=== PATIENT | male | born 1940 | race Caucasian/White ===

== ENCOUNTER 2017-01-26 23:31 | Inpatient (IN) | payer OTHER ==
[2017-01-26] MEDS ORDERED: TYLENOL 500 MG TAB EXTRA STRENGTH PO ONE (23:39)
[2017-01-26] MEDS ORDERED: DUONEB 0.5 MG/3 MG NEB ONE (23:40)
[2017-01-26] MEDS ORDERED: TYLENOL 500 MG TAB EXTRA STRENGTH ONE (23:41)
[2017-01-26] MEDS ORDERED: DUONEB 0.5 MG/3 MG ONE (23:44)
--- NOTE | 2017-01-26 23:56 | RAD ---
Chest, one view Indication: Shortness of breath. Comparison: None Findings: Cardiac silhouette size is within normal limits. There is decreased depth of inspiration. There is bilateral hilar prominence. No focal lung infiltrates or large pleural effusion. The bony t horax is unremarkable. Impression: Bilateral hilar prominence may be accentuated by low lung volumes, but pulmonary artery hypertension or adenopathy could have this appearance as well. No focal infiltrates. Reported By:
[2017-01-26 23:58] LABS: ABG ALLEN TEST POS; ABG BASE EXCESS 0.2 mmol/L (-2.0-2.0); ABG HCO3 23.5 mmol/L (22-26)
[2017-01-27] MEDS ORDERED: SOLU-Medrol 125 MG VIAL IVP ONE (00:03)
--- NOTE | 2017-01-27 00:05 | DR.GENAD ---
HPI - PCP Primary Care Physician: mio - HPI Comment HPI Comment: WORSE TONIGHT. COUGHING, NON PRODUCTIVE, CHEST PAIN AND FEVER. PATIENT IS ALSO WEAK TODAY. - Complaint/Symptoms Chief Complaint Doctors Comments: INCREASING SOB TIMES ONE DAY. Chief Complaint:: pt c/o being SOB - Nurses notes reviewed Nurses Notes Review: Yes - Source History Provided: Patient, Family Member - Mode of Arrival Mode of Arrival: EMS - Timing Onset of Chief Complaint: 01/26/17 Came on: Gradually - Duration Duration: Constant Duration: Days - Severity Severity: Moderate PMH - PMH Past Medical History: Yes Past Medical History: COPD, Dementia, Hypertension Past Surgical History: No - Family History History of Family Medical Conditions: No - Social History Does any household member use tobacco: No Alcohol Use: None Do you use any recreational Drugs:: No Lives With: Family Lives Where: Home - infectious screening In the last 2 months have you had wt loss of >10#?: NO Have you had fever, night sweats or hemotysis?: No Have you traveled outside the country in the last 6 months?: No Isolation: Standard ROS - Review of Systems Constitutional: Fever, Weakness, Fatigue, Loss of Appetite. negative: Chills Eyes: No Symptoms Reported. negative: Eye Pain, Discharge ENTM: Nose Congestion. negative: Ear Pain, Nose Discharge, Throat Pain Respiratoy: Non-Productive Cough, Short of Breath, Wheezing. negative: Productive Cough, Hemoptysis Cardiovascular: Chest Pain, Edema Gastrointestinal/Abdominal: Nausea. negative: Diarrhea, Vomiting Genitourinary: No Symptoms Reported. negative: Dysuria, Frequency, Hematuria Neurological: No Symptoms Reported, Weakness, Dizziness. negative: Headache Musculoskeletal: Muscle Pain Integumentary: Change in Hair/Nails, Dryness Hematologic/Lymphatic: Easy Bruising Endocrine: No Symptoms Reported All Other Systems: Reviewed and Negative PE - Vital Signs Vitals: Temperature 99 F Pulse Rate [Left Radial] 100 Pulse Rate 118 Respiratory Rate 22 Blood Pressure [Left Arm] 109/68 Blood Pressure 152/75 O2 Sat by Pulse Oximetry 95 - General General Appearance: Alert - Head Head Exam: Normal Inspection - Eyes Eye exam: Normal Appearance - ENT ENT Exam: Normal External Ear Exam External Ear Exam: Normal External Inspection TM/Canal Exam: Bilateral Normal Mouth Exam: Normal Inspection Throat Exam: Normal Inspection - Neck Neck Exam: Trachea Midline. negative: Tenderness, Meningismus, Lymphadenopathy - Chest Chest Inspection: Symmetric Chest Wall Rise - Respiratory Respiratory Exam: Respiratory Distress. negative: Chest Wall Tenderness Respiratory Exam: Bilateral Wheezing, Bilateral Rhonchi, Upper Wheezing, Upper Rhonchi, Lower Wheezing, Lower Rhonchi - Cardiovascular Cardiovascular Exam: Regular Rate, Normal Rhythm, Normal Heart Sounds - Abdominal Exam Abdominal Exam: Normal Bowel Sounds, Soft. negative: Tenderness - Extremities Extremities Exam: Tenderness (TENDERNESS AND REDNESS LEFT LEG.), Edema - Neurologic Neurological Exam: Alert, Oriented X3 (TIMES 2) - Psychiatric Psychiatric Exam: Normal Affect, Normal Mood - Skin Skin Exam: Rash, Erythema MDM - Additional Information Additional Information Obtained From: Family - Differential Diagnosis Differential Diagnosis: COPD EXACERBATION, BRONCHITIST, UTI, PNEUMONIA, CELLULITIS Course - Treatment Treatment: SEE ORDERS. - Education/Counseling Education/Counseling: Patient, Family, Education Educated On: Treatment, Diagnosis ROR - Labs Reviewed Laboratory Results Reviewed?: Yes Result Diagrams: 01/26/17 23:55 01/26/17 23:55 Laboratory: WBC 10.6 X10^3/uL (3.6-10.0) H 01/26/17 23:55 RBC 4.23 X10^6/uL (4.7-6.0) L 01/26/17 23:55 Hgb 13.5 g/dL (13.5-18.0) 01/26/17 23:55 Hct 38.6 % (42.0-54.0) L 01/26/17 23:55 MCV 91.2 fL (80.0-100.0) 01/26/17 23:55 MCH 31.8 pg (27.0-34.0) 01/26/17 23:55 MCHC 34.9 g/dL (33.0-35.0) 01/26/17 23:55 RDW 12.8 % (11.6-16.5) 01/26/17 23:55 Plt Count 191 X10^3/uL (150.0-450.0) 01/26/17 23:55 MPV 8.1 fL (7.4-11.0) 01/26/17 23:55 Neut % 87.1 % (42.0-75.0) H 01/26/17 23:55 Lymph % 6.5 % (21.0-51.0) L 01/26/17 23:55 [place] % 5.4 % (0.0-13.0) 01/26/17 23:55 Eos % 0.3 % (0.9-2.9) L 01/26/17 23:55 Baso % 0.7 % (0.2-1.0) 01/26/17 23:55 Neut # 9.2 x10^3/uL (2.2-4.8) H 01/26/17 23:55 Lymph # 0.7 X10^3/uL (1.3-2.9) L 01/26/17 23:55 [place] # 0.6 x10^3/uL (0.3-0.8) 01/26/17 23:55 Eos # 0.0 x10^3/uL (0.0-0.2) 01/26/17 23:55 Baso # 0.1 X10^3/uL (0.0-0.1) 01/26/17 23:55 Absolute Nucleated RBC 0.0 /100WBC 01/26/17 23:55 D-Dimer 1860 ng/mL (0-400) H* 01/26/17 23:55 Sample Site Rrad 01/26/17 23:52 ABG pH 7.460 (7.35-7.45) H 01/26/17 23:52 ABG pCO2 33.0 mmHg (35.0-45.0) L 01/26/17 23:52 ABG pO2 67.0 mmHg (80.0-100.0) L 01/26/17 23:52 ABG HCO3 23.5 mmol/L (22-26) 01/26/17 23:52 ABG O2 Saturation 94.0 % (90-100) 01/26/17 23:52 ABG Base Excess 0.2 mmol/L (-2.0-2.0) 01/26/17 23:52 Alex Test Pos 01/26/17 23:52 A-a Gradient 91.0 mmHg 01/26/17 23:52 FiO2 28.000 01/26/17 23:52 Blood Gas Comments Antoine abg well-mtf 01/26/17 23:52 Sodium 135 mmol/L (136-145) L 01/26/17 23:55 Corrected Sodium 136 mmol/L (136-145) 01/26/17 23:55 Potassium 3.4 mmol/L (3.5-5.1) L 01/26/17 23:55 Chloride 100 mmol/L (98-107) 01/26/17 23:55 Carbon Dioxide 22.8 mmol/L (21-32) 01/26/17 23:55 BUN 19 mg/dL (7-18) H 01/26/17 23:55 Creatinine 1.37 mg/dL (0.70-1.30) H 01/26/17 23:55 Est GFR (MDRD) Af Amer > 60 (>60) 01/26/17 23:55 Est GFR (MDRD) Non-Af 54 (>60) L 01/26/17 23:55 Glucose 139 mg/dL (65-99) H 01/26/17 23:55 Calcium 8.6 mg/dL (8.5-10.1) 01/26/17 23:55 Corrected Calcium TNP 01/26/17 23:55 Total Bilirubin 0.90 mg/dL (0.2-1.0) 01/26/17 23:55 AST 27 Units/L (15-37) 01/26/17 23:55 ALT 24 Units/L (12-78) 01/26/17 23:55 Alkaline Phosphatase 49 Units/L (46-116) 01/26/17 23:55 Creatine Kinase 250 Units/L (39-308) 01/26/17 23:55 CK-MB (CK-2) < 1.0 ng/mL (0-4.0) 01/26/17 23:55 CK/CKMB % Calc 0.4 % (<4) 01/26/17 23:55 Troponin I < 0.02 ng/mL (0-1.5) 01/26/17 23:55 Total Protein 7.7 g/dL (6.4-8.2) 01/26/17 23:55 Albumin 3.4 g/dL (3.4-5.0) 01/26/17 23:55 Globulin 4.3 g/dL (2.5-4.5) 01/26/17 23:55 Albumin/Globulin Ratio 0.8 Ratio (1.1-2.1) L 01/26/17 23:55 - XRAY XRAY Interpreted by: Radiologist XRAY Findings: REPORT DISCUSS WITH PATIENT. - EKG Rhythm: NSR (EKG NOTED.) - Diagnosis Discharge Problem: COPD exacerbation, Bronchitis Chest pain Qualifiers: Chest pain type: intercostal pain Qualified Code(s): R07.82 - Intercostal pain - Discharge Plan Disposition: 09 ADMITTED INPATIENT Condition: Stable - Follow ups/Referrals - Instructions
[2017-01-27] MEDS ORDERED: SOLU-Medrol 125 MG VIAL ONE (00:10)
[2017-01-27] MEDS: NS 1000 ML 1,000 ML IV SCH ×3 (00:14→18:46)
[2017-01-27 00:16] LABS: BASOPHILS # (AUTO) 0.1 X10^3/uL (0.0-0.1); BASOPHILS % (AUTO) 0.7 % (0.2-1.0); EOSINOPHILS % (AUTO) 0.3 % (0.9-2.9); HEMATOCRIT 38.6 % (42.0-54.0); HEMOGLOBIN 13.5 g/dL (13.5-18.0); LYMPHOCYTES # (AUTO) 0.7 X10^3/uL (1.3-2.9); LYMPHOCYTES % (AUTO) 6.5 % (21.0-51.0); MEAN CORPUSCULAR HEMOGLOBIN 31.8 pg (27.0-34.0); MEAN CORPUSCULAR HGB CONC 34.9 g/dL (33.0-35.0); MEAN CORPUSCULAR VOLUME 91.2 fL (80.0-100.0); MEAN PLATELET VOLUME 8.1 fL (7.4-11.0); MONOCYTES # (AUTO) 0.6 x10^3/uL (0.3-0.8); MONOCYTES % (AUTO) 5.4 % (0.0-13.0); NEUTROPHILS # (AUTO) 9.2 x10^3/uL (2.2-4.8); NEUTROPHILS % (AUTO) 87.1 % (42.0-75.0); PLATELET COUNT 191 X10^3/uL (150.0-450.0); RED BLOOD COUNT 4.23 X10^6/uL (4.7-6.0); RED CELL DISTRIBUTION WIDTH 12.8 % (11.6-16.5); WHITE BLOOD COUNT 10.6 X10^3/uL (3.6-10.0)
[2017-01-27 00:35] LABS: ALANINE AMINOTRANSFERASE 24 Units/L (12-78); ALBUMIN 3.4 g/dL (3.4-5.0); ALKALINE PHOSPHATASE 49 Units/L (46-116); ASPARTATE AMINO TRANSFERASE 27 Units/L (15-37); BLOOD UREA NITROGEN 19 mg/dL (7-18); CALCIUM 8.6 mg/dL (8.5-10.1); CARBON DIOXIDE 22.8 mmol/L (21-32); CHLORIDE 100 mmol/L (98-107); COR NA(FOR HYPERGLY) 136 mmol/L (136-145); CREATININE 1.37 mg/dL (0.70-1.30); GLUCOSE 139 mg/dL (65-99); SODIUM 135 mmol/L (136-145); TOTAL PROTEIN 7.7 g/dL (6.4-8.2); eGFR BLACK RACES > 60 (>60); eGFR NON BLACK RACES 54 (>60)
[2017-01-27 00:46] LABS: CKMB % 0.4 % (<4); CREATINE KINASE 250 Units/L (39-308); CREATINE KINASE MB < 1.0 ng/mL (0-4.0); TROPONIN I < 0.02 ng/mL (0-1.5)
[2017-01-27] MEDS ORDERED: LEVAQUIN PREMIX IV 750 MG 750 MG/150 ML BAG IV ONE ×2 (01:15→01:16)
[2017-01-27] MEDS ORDERED: NS 100 ML IV 100 ML IV ONE (02:41)
--- NOTE | 2017-01-27 03:24 | CT ---
CT angiogram of the chest with contrast Indication: Chest pain, shortness of breath, elevated D-dimer. Comparison: None Technique: CT images of the chest were obtained after IV contrast administration per protocol. Autom atic exposure control was utilized. MIP images provided. Findings: No aggressive osseous lesions. Images through the upper abdomen demonstrate several liver hypodensities which cannot be definitively characterized. Cholelithiasis noted. Bilateral renal cyst s with some hyperattenuation of the left kidney, suggesting proteinaceous or hemorrhagic cyst. The heart size is normal, without significant pericardial thickening or pericardial effusion. The th oracic aorta is grossly normal aside from scattered atherosclerotic calcifications. No pulmonary art erial filling defect identified. There are mildly enlarged right hilar lymph nodes. There is mild up per lobe predominant emphysema. There is a 3 mm left lower lobe pulmonary nodule on axial image 61. No focal infiltrates, pleural effusion, or pneumothorax. Impression: 1. No evidence for PTE. No acute chest process. 2. COPD. 3. Right hilar adenopathy, of indeterminate significance. Correlate with malignancy history. The fol lowup recommended. 4. 3 mm left lower lobe pulmonary nodule. Consider CT followup in 6-12 months if the patient has sig nificant risk factors. 5. Hypodense liver lesions cannot be definitively characterized, but are likely cysts. Reported By:
[2017-01-27 04:43] LABS: BILIRUBIN,URINE NEGATIVE (NEGATIVE); BLOOD/HEMOGLOBIN,URINE 3+ (NEGATIVE); GLUCOSE, URINE NEGATIVE (NEGATIVE); KETONES,URINE NEGATIVE (NEGATIVE); LEUKOCYTE ESTERASE ,URINE NEGATIVE (NEGATIVE); NITRITES,URINE NEGATIVE (NEGATIVE); PROTEIN,URINE 2+ (NEGATIVE); UROBILINOGEN,URINE 1+ (NORMAL)
[2017-01-27 04:57] LABS: APPEARANCE,URINE CLEAR (CLEAR); COLOR,URINE DARK YELLOW (YELLOW); RBC,URINE 0-3 /HPF (NEGATIVE)
[2017-01-27 04:58] LABS: BACTERIA,URINE 1+ /HPF (NEGATIVE); MUCUS,URINE MODERATE /HPF (NEGATIVE); SQUAMOUS EPITHELIAL CELL,UR RARE /HPF (NEGATIVE)
[2017-01-27] MEDS ORDERED: DUONEB 0.5 MG/3 MG NEB SCH (05:00)
[2017-01-27] MEDS ORDERED: DUONEB 0.5 MG/3 MG ONE (05:14)
[2017-01-27] MEDS ORDERED: ROCEPHIN VIAL 1 GM 1 GM in NS 50 ML IV + SPIKE MINIBAG* 50 ML IV SCH (06:00)
[2017-01-27] MEDS ORDERED: LEVAQUIN TAB 750 MG PO SCH ×3 (06:00→21:00)
[2017-01-27] MEDS: SOLU-Medrol 40 MG VIAL IVP SCH ×3 (06:16→21:00)
[2017-01-27 06:49] VITALS: BMI 27.1
[2017-01-27] MEDS ORDERED: K-DUR TAB 20 MEQ PO PRN (06:50)
[2017-01-27] MEDS ORDERED: K-LYTE EFFERVESCENT PO PRN (06:50)
[2017-01-27] MEDS ORDERED: K-RIDER 10 MEQ/NS 100 ML 10 MEQ/100 ML BAG IV PRN (06:50)
[2017-01-27] MEDS ORDERED: POTASSIUM CHLORIDE LIQ 20 MEQ UDC PO PRN (06:50)
[2017-01-27] MEDS: DUONEB 0.5 MG/3 MG NEB SCH ×4 (08:49→20:58)
[2017-01-27] MEDS: LEVAQUIN PREMIX IV 750 MG 750 MG/150 ML BAG IV SCH (10:51)
[2017-01-27] MEDS: FORTAZ or TAZICEF INJ 1 GM in NS 50 ML IV + SPIKE MINIBAG* 50 ML IV SCH ×3 (10:56→21:00)
[2017-01-27] MEDS: LOVENOX INJ 40 MG SYR SC SCH ×2 (10:57→21:02)
[2017-01-27] MEDS ORDERED: PATIENT'S HOME MEDICATION (Alprazolam [Xanax 1 Mg] 1 MG) PO PRN (11:11)
[2017-01-27] MEDS ORDERED: PATIENT'S HOME MEDICATION (Fluoxetine Hcl [Prozac Cap 40 Mg] 40 MG) PO SCH (11:15)
[2017-01-27] MEDS ORDERED: ZESTRIL TAB 20 MG ONE (11:46)
[2017-01-27] MEDS: NORVASC TAB 5 MG PO SCH (11:48)
[2017-01-27] MEDS: PLAVIX PO SCH (11:48)
[2017-01-27] MEDS: PROTONIX TAB 40 MG PO SCH (11:48)
[2017-01-27] MEDS: ASPIRIN EC 81 MG PO SCH (11:48)
[2017-01-27] MEDS: ZESTRIL TAB 20 MG PO SCH (11:48)
[2017-01-27] MEDS: ZIAC 5/6.25 MG PO SCH (12:10)
[2017-01-27 12:30] LABS: BASOPHILS % (AUTO) 0.1 % (0.2-1.0); HEMATOCRIT 37.4 % (42.0-54.0); HEMOGLOBIN 12.4 g/dL (13.5-18.0); LYMPHOCYTES # (AUTO) 0.4 X10^3/uL (1.3-2.9); LYMPHOCYTES % (AUTO) 2.9 % (21.0-51.0); MEAN CORPUSCULAR HEMOGLOBIN 30.1 pg (27.0-34.0); MEAN CORPUSCULAR HGB CONC 33.1 g/dL (33.0-35.0); MEAN CORPUSCULAR VOLUME 90.9 fL (80.0-100.0); MONOCYTES # (AUTO) 0.1 x10^3/uL (0.3-0.8); NEUTROPHILS # (AUTO) 14.1 x10^3/uL (2.2-4.8); PLATELET COUNT 184 X10^3/uL (150.0-450.0); RED BLOOD COUNT 4.12 X10^6/uL (4.7-6.0); RED CELL DISTRIBUTION WIDTH 13.1 % (11.6-16.5); WHITE BLOOD COUNT 14.7 X10^3/uL (3.6-10.0)
[2017-01-27 12:50] LABS: BAND NEUTROPHILS % 6 % (0-10); PLATELET MORPHOLOGY COMMENT NORMAL (NORMAL)
[2017-01-27 12:51] LABS: ALBUMIN 2.8 g/dL (3.4-5.0); CALCIUM 8.3 mg/dL (8.5-10.1); CARBON DIOXIDE 22.7 mmol/L (21-32); COR CA(FOR HYPOALB) 9.3 mg/dL (8.5-10.1); CREATININE 1.56 mg/dL (0.70-1.30)
[2017-01-27] MEDS: XANAX PO SCH ×2 (13:11→21:00)
--- NOTE | 2017-01-27 15:59 | DR.H&P ---
H&P - History & Physical for Day of: H&P Date: 01/27/17 - Chief Complaint Chief Complaint: Cough, Chest Pain, Fever - Allergies Allergies/Adverse Reactions: Allergies Allergy/AdvReac Type Severity Reaction Status Date / Time No Known Drug Allergy Allergy Verified 01/26/17 23:32 - History of Present Illness History of Present Illness: Patient presented to the emergency room with complaints of cough, chest, fever and weakness that has gotten worse over the past day. Patient admitted with COPD Exacerbation, Weakness. Patient started on IVF, IV Antibiotics. Chest CTA ordered showed COPD, Right hilar adenopathy, questionable history of malignancy and 3mm KLeft lower lobe pulmonary nodule. . Chest Xray showed bilateral hilar prominence maybe accenuated by low lung volumes however, pulmonary artery hypertension or adenopathy could have the same appearance. Patient started on solumedrol IV as well and nebulizers and potassium replacement protocol for hypokalemia - Past Medical History Past Medical History: Arthritis, COPD, Dementia, GERD, Hypertension Additional Medical History: TIA, Cystitis - Family History Family Medical History: Cancer, Hypertension - Social History Does patient currently use any type of tobacco product: Yes (DIP) Have you used tobacco products in the last 12 months: Yes Type of Tobacco Use: Smokeless Does any household member use tobacco: No Alcohol Use: None Drug Use: None - Medications Home Medications: Alprazolam [Xanax 1 mg] 1 mg PO TID PRN 01/27/17 [History Confirmed 01/27/17] Amlodipine Besylate [NORVASC 5 MG *] 5 mg PO DAILY 01/27/17 [History Confirmed 01/27/17] Aspirin [Aspirin Adult Low Dose] 81 mg PO DAILY 01/27/17 [History Confirmed 01/08] Bisoprolol & Hydrochlorothiazi [Bisoprolol Fumarate/[place] 5-6.25 mg] 1 tab PO DAILY 01/27/17 [History Confirmed 01/27/17] Clopidogrel Bisulfate [Plavix] 75 mg PO DAILY 01/27/17 [History Confirmed ] Fluoxetine HCl [Prozac cap 40 mg] 40 mg PO DAILY 01/27/17 [History Confirmed 01/08] Lisinopril 20 mg PO DAILY 01/27/17 [History Confirmed 01/27/17] Olanzapine [Zyprexa Tab 2.5 mg] 2.5 mg PO HS 01/27/17 [History Confirmed ] Pantoprazole Sodium 40 mg [Protonix Tab 40 mg] 40 mg PO DAILY 01/27/17 [History Confirmed 01/27/17] Simvastatin [Zocor Tab 40 mg] 40 mg PO HS 01/27/17 [History Confirmed 01/27/17] - Review of Systems Constitutional: Weakness Eyes: No Symptoms Reported ENT: No Symptoms Reported Respiratory: Cough, Shortness of Breath Cardiovascular: Chest Pain Gastrointestinal: No Symptoms Reported Genitourinary: No Symptoms Reported Musculoskeletal: Other (weakness) Skin: No Symptoms Reported Neurological: No Symptoms Reported - Physical Exam Vital Signs: Temperature 97.7 F Pulse Rate [Apical] 94 Pulse Rate 79 Respiratory Rate 19 Blood Pressure [Right Arm] 99/56 O2 Sat by Pulse Oximetry 98 Oriented: Normal Eyes: Normal Ear: Normal Nose: Normal Throat: Normal Respiratory: Wheezes Throughout (scattered) Cardiovascular: Normal : Normal Auscultation: Bowel Sounds: Normal Palpation: Normal Tenderness: Normal Skin: Normal Musculoskeletal: Normal Psychiatric: Normal Mood Description: Calm, Appropriate Affect: Normal Speech Pattern: Clear, Appropriate - Assessment/Plan (1) COPD exacerbation Status: Acute Plan: IV Solumedrol 40mg Q8hr, REpeat ABG in AM (2) Chest pain Qualifiers: Chest pain type: intercostal pain Ischemic chest pain type: I Qualified Code(s): R07.82 - Intercostal pain Status: Acute Plan: continue to monitor and continuosu telemetry (3) Pneumonia Qualifiers: Pneumonia type: P Aspiration pneumonia type: A Laterality: L Lung location: L Status: Acute Plan: Fortaz and Levaquin IV discontinue rocephin (4) Bilateral lower extremity edema Status: Acute Plan: Lower extremoity venous dopple bilateral, lovenox 40mg SQ q12hr for DVT prevention
--- NOTE | 2017-01-27 16:19 | VAS ---
HISTORY: Bilateral lower extremity edema. Study: Bilateral lower extremity venous Doppler Comparison: None. TECHNIQUE: Real-time dynamic grayscale, color flow and complete spectral Doppler ultrasound examina tion of the major deep venous structures were obtained of both lower extremities. FINDINGS: Right lower extremity: Real-time examination shows no evidence of thrombus within the common femora l, superficial femoral, or popliteal veins. There is normal compressibility throughout. Color flow i maging shows normal venous blood flow within the major vessels. Doppler examination shows normal dante ous waveforms with appropriate respiratory variation and augmentation. Left lower extremity: Real-time examination shows no evidence of thrombus within the common femoral, superficial femoral, or popliteal veins. There is normal compressibility throughout. Color flow cheryl ging shows normal venous blood flow within the major vessels. Doppler examination shows some diminis hed flow within the mid to distal left superficial femoral vein. IMPRESSION: 1. Normal bilateral lower extremity venous Doppler, without evidence of DVT. 2. Subjective diminished flow in the mid to distal left superficial femoral veins. Reported By:
[2017-01-27] MEDS: ZOCOR TAB 40 MG PO SCH (20:49)
[2017-01-28] MEDS: DUONEB 0.5 MG/3 MG NEB SCH ×7 (01:21→20:56)
[2017-01-28 05:17] LABS: ALANINE AMINOTRANSFERASE 17 Units/L (12-78); ALBUMIN 2.4 g/dL (3.4-5.0); ALKALINE PHOSPHATASE 30 Units/L (46-116); ASPARTATE AMINO TRANSFERASE 27 Units/L (15-37); BLOOD UREA NITROGEN 19 mg/dL (7-18); CARBON DIOXIDE 24.6 mmol/L (21-32); CHLORIDE 104 mmol/L (98-107); COR CA(FOR HYPOALB) 9.3 mg/dL (8.5-10.1); COR NA(FOR HYPERGLY) 138 mmol/L (136-145); CREATININE 1.15 mg/dL (0.70-1.30); GLUCOSE 137 mg/dL (65-99); SODIUM 137 mmol/L (136-145); TOTAL PROTEIN 6.3 g/dL (6.4-8.2); eGFR BLACK RACES > 60 (>60); eGFR NON BLACK RACES > 60 (>60)
[2017-01-28 05:21] LABS: BASOPHILS # (AUTO) 0.1 X10^3/uL (0.0-0.1); BASOPHILS % (AUTO) 0.3 % (0.2-1.0); HEMATOCRIT 37.5 % (42.0-54.0); HEMOGLOBIN 12.5 g/dL (13.5-18.0); LYMPHOCYTES # (AUTO) 0.7 X10^3/uL (1.3-2.9); LYMPHOCYTES % (AUTO) 3.4 % (21.0-51.0); MEAN CORPUSCULAR HEMOGLOBIN 30.1 pg (27.0-34.0); MEAN CORPUSCULAR HGB CONC 33.4 g/dL (33.0-35.0); MEAN CORPUSCULAR VOLUME 90.2 fL (80.0-100.0); MEAN PLATELET VOLUME 8.4 fL (7.4-11.0); MONOCYTES # (AUTO) 0.5 x10^3/uL (0.3-0.8); MONOCYTES % (AUTO) 2.3 % (0.0-13.0); NEUTROPHILS # (AUTO) 18.7 x10^3/uL (2.2-4.8); PLATELET COUNT 189 X10^3/uL (150.0-450.0); RED BLOOD COUNT 4.16 X10^6/uL (4.7-6.0); RED CELL DISTRIBUTION WIDTH 13.1 % (11.6-16.5); WHITE BLOOD COUNT 19.9 X10^3/uL (3.6-10.0)
[2017-01-28] MEDS: SOLU-Medrol 40 MG VIAL IVP SCH ×3 (05:43→21:00)
[2017-01-28] MEDS: FORTAZ or TAZICEF INJ 1 GM in NS 50 ML IV + SPIKE MINIBAG* 50 ML IV SCH ×3 (05:43→21:00)
[2017-01-28] MEDS: NS 1000 ML 1,000 ML IV SCH ×3 (05:43→22:10)
[2017-01-28 06:04] LABS: BAND NEUTROPHILS % 12 % (0-10); PLATELET MORPHOLOGY COMMENT NORMAL (NORMAL)
--- NOTE | 2017-01-28 06:21 | RAD ---
HISTORY: COPD, shortness of breath Study: Single-view chest, done portably Comparison: January 26, 2017 Findings: Cardiac monitoring leads are noted on the chest. Examination is again expiratory with crowding of br onchovascular markings and accentuation of the hilar structures bilaterally. Heart size is normal. N o infiltrate, CHF, pleural fluid or pneumothorax is seen. Osseous structures are intact. IMPRESSION: Expiratory chest with crowding of bronchovascular markings and prominent hilar structures bilaterall y. An acute process is not identified. Reported By:
[2017-01-28] MEDS: XANAX PO SCH ×3 (06:51→21:00)
[2017-01-28] MEDS ORDERED: ZESTRIL TAB 20 MG ONE (08:35)
[2017-01-28] MEDS: NORVASC TAB 5 MG PO SCH (08:38)
[2017-01-28] MEDS: ZESTRIL TAB 20 MG PO SCH (08:38)
[2017-01-28] MEDS: PROTONIX TAB 40 MG PO SCH (08:38)
[2017-01-28] MEDS: ASPIRIN EC 81 MG PO SCH (08:38)
[2017-01-28] MEDS: PLAVIX PO SCH (08:40)
[2017-01-28] MEDS: LOVENOX INJ 40 MG SYR SC SCH ×2 (08:40→21:00)
[2017-01-28] MEDS: PROzac PO SCH (08:43)
[2017-01-28] MEDS: ZIAC 5/6.25 MG PO SCH (08:47)
[2017-01-28] MEDS: LEVAQUIN PREMIX IV 750 MG 750 MG/150 ML BAG IV SCH (09:01)
[2017-01-28] MEDS: ZOCOR TAB 40 MG PO SCH (21:01)
[2017-01-29] MEDS: DUONEB 0.5 MG/3 MG NEB SCH ×6 (01:09→21:01)
--- NOTE | 2017-01-29 05:38 | RAD ---
Chest, one view Indication: COPD, shortness of breath. Comparison: 01/28/2017 Findings: Cardiac silhouette size is within normal limits. There is mild right hemidiaphragm elevati on. There is decreased depth of inspiration, without focal infiltrates, large effusion, or pneumotho rax. The bony thorax is unremarkable. Impression: No acute chest process or significant change. Reported By:
[2017-01-29] MEDS: XANAX PO SCH (05:39)
[2017-01-29] MEDS: SOLU-Medrol 40 MG VIAL IVP SCH ×3 (05:39→21:13)
[2017-01-29] MEDS: FORTAZ or TAZICEF INJ 1 GM in NS 50 ML IV + SPIKE MINIBAG* 50 ML IV SCH ×3 (05:39→21:13)
[2017-01-29 05:54] LABS: ALANINE AMINOTRANSFERASE 26 Units/L (12-78); ALBUMIN 2.5 g/dL (3.4-5.0); ALKALINE PHOSPHATASE 31 Units/L (46-116); ASPARTATE AMINO TRANSFERASE 32 Units/L (15-37); BLOOD UREA NITROGEN 18 mg/dL (7-18); CALCIUM 8.2 mg/dL (8.5-10.1); CHLORIDE 106 mmol/L (98-107); COR CA(FOR HYPOALB) 9.4 mg/dL (8.5-10.1); COR NA(FOR HYPERGLY) 140 mmol/L (136-145); GLUCOSE 125 mg/dL (65-99); SODIUM 139 mmol/L (136-145); TOTAL PROTEIN 6.7 g/dL (6.4-8.2); eGFR BLACK RACES > 60 (>60); eGFR NON BLACK RACES > 60 (>60)
[2017-01-29 06:19] LABS: BASOPHILS % (AUTO) 0 % (0.2-1.0); HEMATOCRIT 37.1 % (42.0-54.0); HEMOGLOBIN 12.6 g/dL (13.5-18.0); LYMPHOCYTES # (AUTO) 0.6 X10^3/uL (1.3-2.9); LYMPHOCYTES % (AUTO) 3.2 % (21.0-51.0); MEAN CORPUSCULAR HEMOGLOBIN 30.8 pg (27.0-34.0); MEAN CORPUSCULAR VOLUME 90.4 fL (80.0-100.0); MEAN PLATELET VOLUME 8.5 fL (7.4-11.0); MONOCYTES # (AUTO) 0.4 x10^3/uL (0.3-0.8); MONOCYTES % (AUTO) 2.1 % (0.0-13.0); NEUTROPHILS # (AUTO) 17.9 x10^3/uL (2.2-4.8); NEUTROPHILS % (AUTO) 94.7 % (42.0-75.0); PLATELET COUNT 207 X10^3/uL (150.0-450.0); RED BLOOD COUNT 4.11 X10^6/uL (4.7-6.0); RED CELL DISTRIBUTION WIDTH 13.2 % (11.6-16.5); WHITE BLOOD COUNT 18.9 X10^3/uL (3.6-10.0)
[2017-01-29 06:52] LABS: ERYTHROCYTE SEDIMENTATION RATE 20 MM/HOUR (0-15)
[2017-01-29 07:05] LABS: PLATELET MORPHOLOGY COMMENT NORMAL (NORMAL)
[2017-01-29] MEDS ORDERED: ZESTRIL TAB 20 MG ONE (08:55)
[2017-01-29] MEDS: LEVAQUIN PREMIX IV 750 MG 750 MG/150 ML BAG IV SCH (08:58)
[2017-01-29] MEDS: ASPIRIN EC 81 MG PO SCH (08:58)
[2017-01-29] MEDS: PROTONIX TAB 40 MG PO SCH (08:59)
[2017-01-29] MEDS: ZIAC 5/6.25 MG PO SCH (08:59)
[2017-01-29] MEDS: PROzac PO SCH (08:59)
[2017-01-29] MEDS: NORVASC TAB 5 MG PO SCH (08:59)
[2017-01-29] MEDS: ZESTRIL TAB 20 MG PO SCH (08:59)
[2017-01-29] MEDS: PLAVIX PO SCH (09:00)
[2017-01-29] MEDS: LOVENOX INJ 40 MG SYR SC SCH ×2 (09:01→21:12)
[2017-01-29] MEDS: NS 1000 ML 1,000 ML IV SCH ×2 (09:07→22:15)
[2017-01-29] MEDS ORDERED: XANAX PO PRN (10:11)
--- NOTE | 2017-01-29 14:18 | PCM.PROG ---
Progress Note - Progress Note for Day of Date: 01/28/17 - Subjective Subjective: Patient presented to the emergency room with complaints of cough, chest, fever and weakness that has gotten worse over the past day. Patient admitted with COPD Exacerbation, Weakness. Patient started on IVF, IV Antibiotics. Chest CTA ordered showed COPD, Right hilar adenopathy, questionable history of malignancy and 3mm KLeft lower lobe pulmonary nodule. . Chest Xray showed bilateral hilar prominence maybe accenuated by low lung volumes however, pulmonary artery hypertension or adenopathy could have the same appearance. Patient started on solumedrol IV as well and nebulizers and potassium replacement protocol for hypokalemia. Patient has been running a fever with a spike 103.0. Chest XRay this am shows CXR expiratory chest with crowding of bronchovascular markings and prominent hilar structures bilaterally an acute process is not identified. Labs are normal with the exception of WBC 19.9, RBC 4.16, Hgb 12.5, Hct 37.5, Neut% 94, Lymph% 3.4, Eos% 0.0, Neut# 18.7, Lymph# 0.7, BUN 19, Glucose 137, Calcium 8.0, Alkaline Phosphate 30, Albumin 2.4. Patient is noted to have some scattered wheezing that is improving. We are going to start patient on fortaz and levaquin IV as well as solumedrol and nebulizers with the addition of incentive spirometer. - Past Medical Family Social History Past Med/Fam/Surg Hx: No changes since H&P Allergies: Allergies No Known Drug Allergy Allergy (Verified 01/26/17 23:32) - Review of Systems ROS: No change since H&P - Vital Signs and I&O's Vital Signs: Temperature 98.3 F Pulse Rate [Apical] 92 Pulse Rate 87 Respiratory Rate 19 Blood Pressure [Right Arm] 100/66 O2 Sat by Pulse Oximetry 96 Intake and Output: Intake & Output 01/27/17 01/28/17 01/29/17 01/30/17 11:59 11:59 11:59 11:59 Intake Total 2180 3405 Output Total 1850 1650 Balance 330 1755 - Physical Exam Oriented: Normal Eyes: Normal Ear: Normal Nose: Normal Throat: Normal Respiratory: Wheezes (scattered ) Cardiovascular: Normal : Normal Auscultation: Bowel Sounds: Normal Tenderness: Normal Skin: Normal Musculoskeletal: Normal Psychiatric: Normal Mood Description: Calm, Appropriate Affect: Normal Speech Pattern: Clear, Appropriate - Laboratory and Diagnostics Result Diagrams: 01/29/17 04:50 01/29/17 04:50 Labs: Labs are normal with the exception of WBC 19.9, RBC 4.16, Hgb 12.5, Hct 37.5, Neut% 94, Lymph% 3.4, Eos% 0.0, Neut# 18.7, Lymph# 0.7, BUN 19, Glucose 137, Calcium 8.0, Alkaline Phosphate 30, Albumin 2.4. Radiology Reviewed: Yes - Plan (1) COPD exacerbation Status: Acute Plan: IV Solumedrol 40mg Q8hr, REpeat ABG in AM (2) Chest pain Status: Acute Qualifiers: Chest pain type: intercostal pain Ischemic chest pain type: I Qualified Code(s): R07.82 - Intercostal pain Plan: continue to monitor and continuosu telemetry (3) Pneumonia Status: Acute Qualifiers: Pneumonia type: P Aspiration pneumonia type: A Laterality: L Lung location: L Plan: Fortaz and Levaquin IV discontinue rocephin (4) Bilateral lower extremity edema Status: Acute Plan: lovenox 40mg SQ q12hr for DVT prevention
--- NOTE | 2017-01-29 14:35 | PCM.PROG ---
Progress Note - Progress Note for Day of Date: 01/29/17 - Subjective Subjective: Patient presented to the emergency room with complaints of cough, chest, fever and weakness that has gotten worse over the past day. Patient admitted with COPD Exacerbation, Weakness. Patient started on IVF, IV Antibiotics. Patient has continue to improve he states that he is feeling much better he has been afebrile we are going to conintue his antibiotics and repeat labs in the am . His WBC count is slowly coming down it is now 18.9. We are going to continue patient on fortaz and levaquin IV as well as solumedrol and nebulizers. Patient will be tested for need of oxygen at home and will possibly discharge in the am . Labs are within normal limits with the exception of WBC 18.9, RBC 4.11, Hgb 12.6, Hct 37.1, Neut% 94.7, Lymph% 3.2, Eos% 0.0, Baso% 0, Neut# 17.9, Lymph# 0.6, Glucose 125, Calcium 8.2, Alkaline phosphate 51, CRP 52.00, Albumin 2.5. Chest Xray this am shows no acute process or significant change - Past Medical Family Social History Past Med/Fam/Surg Hx: No changes since H&P Allergies: Allergies No Known Drug Allergy Allergy (Verified 01/26/17 23:32) - Review of Systems ROS: No change since H&P - Vital Signs and I&O's Vital Signs: Temperature 98.3 F Pulse Rate [Apical] 92 Pulse Rate 87 Respiratory Rate 19 Blood Pressure [Right Arm] 100/66 O2 Sat by Pulse Oximetry 96 Intake and Output: Intake & Output 01/27/17 01/28/17 01/29/17 01/30/17 11:59 11:59 11:59 11:59 Intake Total 2180 3405 1610 Output Total 1850 1650 900 Balance 330 1755 710 - Physical Exam Oriented: Normal Eyes: Normal Ear: Normal Nose: Normal Throat: Normal Respiratory: Wheezes (scattered ) Cardiovascular: Normal : Normal Auscultation: Bowel Sounds: Normal Tenderness: Normal Skin: Normal Musculoskeletal: Normal Psychiatric: Normal Mood Description: Calm, Appropriate Affect: Normal Speech Pattern: Clear, Appropriate - Laboratory and Diagnostics Result Diagrams: 01/29/17 04:50 01/29/17 04:50 Labs: Laboratory WBC 18.9 X10^3/uL (3.6-10.0) H 01/29/17 04:50 RBC 4.11 X10^6/uL (4.7-6.0) L 01/29/17 04:50 Hgb 12.6 g/dL (13.5-18.0) L 01/29/17 04:50 Hct 37.1 % (42.0-54.0) L 01/29/17 04:50 MCV 90.4 fL (80.0-100.0) 01/29/17 04:50 MCH 30.8 pg (27.0-34.0) 01/29/17 04:50 MCHC 34.0 g/dL (33.0-35.0) 01/29/17 04:50 RDW 13.2 % (11.6-16.5) 01/29/17 04:50 Plt Count 207 X10^3/uL (150.0-450.0) 01/29/17 04:50 Plt Count Comment Adequate (ADEQUATE) 01/29/17 04:50 MPV 8.5 fL (7.4-11.0) 01/29/17 04:50 Neut % 94.7 % (42.0-75.0) H 01/29/17 04:50 Lymph % 3.2 % (21.0-51.0) L 01/29/17 04:50 [place] % 2.1 % (0.0-13.0) 01/29/17 04:50 Eos % 0.0 % (0.9-2.9) L 01/29/17 04:50 Baso % 0 % (0.2-1.0) L 01/29/17 04:50 Neut # 17.9 x10^3/uL (2.2-4.8) H 01/29/17 04:50 Lymph # 0.6 X10^3/uL (1.3-2.9) L 01/29/17 04:50 [place] # 0.4 x10^3/uL (0.3-0.8) 01/29/17 04:50 Eos # 0.0 x10^3/uL (0.0-0.2) 01/29/17 04:50 Baso # 0.0 X10^3/uL (0.0-0.1) 01/29/17 04:50 Absolute Nucleated RBC 0.0 /100WBC 01/29/17 04:50 Total Counted 100 01/29/17 04:50 Neutrophils % (Manual) 92 % (39-76) H 01/29/17 04:50 Band Neutrophils % 12 % (0-10) H 01/28/17 04:45 Lymphocytes % (Manual) 6 % (13-43) L 01/29/17 04:50 Monocytes % (Manual) 2 % (4-9) L 01/29/17 04:50 Plt Morphology Comment Normal (NORMAL) 01/29/17 04:50 RBC Morphology Normal (NORMAL) 01/29/17 04:50 ESR 20 MM/HOUR (0-15) H 01/29/17 04:50 D-Dimer 1860 ng/mL (0-400) H* 01/26/17 23:55 Sample Site Rrad 01/26/17 23:52 ABG pH 7.460 (7.35-7.45) H 01/26/17 23:52 ABG pCO2 33.0 mmHg (35.0-45.0) L 01/26/17 23:52 ABG pO2 67.0 mmHg (80.0-100.0) L 01/26/17 23:52 ABG HCO3 23.5 mmol/L (22-26) 01/26/17 23:52 ABG O2 Saturation 94.0 % (90-100) 01/26/17 23:52 ABG Base Excess 0.2 mmol/L (-2.0-2.0) 01/26/17 23:52 Alex Test Pos 01/26/17 23:52 A-a Gradient 91.0 mmHg 01/26/17 23:52 FiO2 28.000 01/26/17 23:52 Blood Gas Comments Antoine abg well-mtf 01/26/17 23:52 Sodium 139 mmol/L (136-145) 01/29/17 04:50 Corrected Sodium 140 mmol/L (136-145) 01/29/17 04:50 Potassium 3.5 mmol/L (3.5-5.1) 01/29/17 04:50 Chloride 106 mmol/L (98-107) 01/29/17 04:50 Carbon Dioxide 23.0 mmol/L (21-32) 01/29/17 04:50 BUN 18 mg/dL (7-18) 01/29/17 04:50 Creatinine 1.10 mg/dL (0.70-1.30) 01/29/17 04:50 Est GFR (MDRD) Af Amer > 60 (>60) 01/29/17 04:50 Est GFR (MDRD) Non-Af > 60 (>60) 01/29/17 04:50 Glucose 125 mg/dL (65-99) H 01/29/17 04:50 Calcium 8.2 mg/dL (8.5-10.1) L 01/29/17 04:50 Corrected Calcium 9.4 mg/dL (8.5-10.1) 01/29/17 04:50 Total Bilirubin 0.40 mg/dL (0.2-1.0) 01/29/17 04:50 AST 32 Units/L (15-37) 01/29/17 04:50 ALT 26 Units/L (12-78) 01/29/17 04:50 Alkaline Phosphatase 31 Units/L (46-116) L 01/29/17 04:50 Creatine Kinase 250 Units/L (39-308) 01/26/17 23:55 CK-MB (CK-2) < 1.0 ng/mL (0-4.0) 01/26/17 23:55 CK/CKMB % Calc 0.4 % (<4) 01/26/17 23:55 Troponin I < 0.02 ng/mL (0-1.5) 01/26/17 23:55 C-Reactive Protein 52.00 mg/L (0-3.0) H 01/29/17 04:50 Total Protein 6.7 g/dL (6.4-8.2) 01/29/17 04:50 Albumin 2.5 g/dL (3.4-5.0) L 01/29/17 04:50 Globulin 4.2 g/dL (2.5-4.5) 01/29/17 04:50 Albumin/Globulin Ratio 0.6 Ratio (1.1-2.1) L 01/29/17 04:50 Specimen Type Catherized urine 01/27/17 04:19 Urine Color Dark yellow (YELLOW) 01/27/17 04:19 Urine Appearance Clear (CLEAR) 01/27/17 04:19 Urine pH 5.0 (5.0 - 8.0) 01/27/17 04:19 Ur Specific [place] 1.015 (1.000-1.030) 01/27/17 04:19 Urine Protein 2+ (NEGATIVE) 01/27/17 04:19 Urine Glucose (UA) Negative (NEGATIVE) 01/27/17 04:19 Urine Ketones Negative (NEGATIVE) 01/27/17 04:19 Urine Occult Blood 3+ (NEGATIVE) 01/27/17 04:19 Urine Nitrite Negative (NEGATIVE) 01/27/17 04:19 Urine Bilirubin Negative (NEGATIVE) 01/27/17 04:19 Urine Urobilinogen 1+ (NORMAL) 01/27/17 04:19 Ur Leukocyte Esterase Negative (NEGATIVE) 01/27/17 04:19 Urine RBC 0-3 /HPF (NEGATIVE) 01/27/17 04:19 Urine WBC 3-5 /HPF (NEGATIVE) 01/27/17 04:19 Ur Squamous Epith Cells Rare /HPF (NEGATIVE) 01/27/17 04:19 Urine Bacteria 1+ /HPF (NEGATIVE) 01/27/17 04:19 Urine Mucus Moderate /HPF (NEGATIVE) 01/27/17 04:19 Ur Culture Indicated? Yes/culture set up 01/27/17 04:19 Radiology Reviewed: Yes - Plan (1) COPD exacerbation Status: Acute Plan: IV Solumedrol 40mg Q8hr (2) Chest pain Status: Acute Qualifiers: Chest pain type: intercostal pain Ischemic chest pain type: I Qualified Code(s): R07.82 - Intercostal pain Plan: continue to monitor and continuosu telemetry (3) Pneumonia Status: Acute Qualifiers: Pneumonia type: P Aspiration pneumonia type: A Laterality: L Lung location: L Plan: Fortaz and Levaquin IV (4) Bilateral lower extremity edema Status: Acute Plan: lovenox 40mg SQ q12hr for DVT prevention
[2017-01-29] MEDS: ZOCOR TAB 40 MG PO SCH (21:17)
[2017-01-30] MEDS: DUONEB 0.5 MG/3 MG NEB SCH ×3 (01:12→09:10)
[2017-01-30 04:49] LABS: ALANINE AMINOTRANSFERASE 30 Units/L (12-78); ALBUMIN 2.7 g/dL (3.4-5.0); ALKALINE PHOSPHATASE 32 Units/L (46-116); ASPARTATE AMINO TRANSFERASE 29 Units/L (15-37); BLOOD UREA NITROGEN 18 mg/dL (7-18); CALCIUM 8.4 mg/dL (8.5-10.1); CARBON DIOXIDE 23.7 mmol/L (21-32); CHLORIDE 106 mmol/L (98-107); COR CA(FOR HYPOALB) 9.4 mg/dL (8.5-10.1); GLUCOSE 107 mg/dL (65-99); SODIUM 139 mmol/L (136-145); TOTAL PROTEIN 6.8 g/dL (6.4-8.2); eGFR BLACK RACES > 60 (>60); eGFR NON BLACK RACES 57 (>60)
[2017-01-30 04:59] LABS: BASOPHILS % (AUTO) 0.1 % (0.2-1.0); HEMATOCRIT 37.2 % (42.0-54.0); HEMOGLOBIN 12.7 g/dL (13.5-18.0); LYMPHOCYTES # (AUTO) 0.6 X10^3/uL (1.3-2.9); LYMPHOCYTES % (AUTO) 3.8 % (21.0-51.0); MEAN CORPUSCULAR HEMOGLOBIN 30.8 pg (27.0-34.0); MEAN CORPUSCULAR HGB CONC 34.2 g/dL (33.0-35.0); MEAN CORPUSCULAR VOLUME 90.1 fL (80.0-100.0); MEAN PLATELET VOLUME 8.3 fL (7.4-11.0); MONOCYTES # (AUTO) 0.4 x10^3/uL (0.3-0.8); MONOCYTES % (AUTO) 2.7 % (0.0-13.0); NEUTROPHILS # (AUTO) 13.8 x10^3/uL (2.2-4.8); NEUTROPHILS % (AUTO) 93.4 % (42.0-75.0); PLATELET COUNT 242 X10^3/uL (150.0-450.0); RED BLOOD COUNT 4.12 X10^6/uL (4.7-6.0); RED CELL DISTRIBUTION WIDTH 13.2 % (11.6-16.5); WHITE BLOOD COUNT 14.8 X10^3/uL (3.6-10.0)
[2017-01-30] MEDS: SOLU-Medrol 40 MG VIAL IVP SCH (04:59)
[2017-01-30] MEDS: NS 1000 ML 1,000 ML IV SCH (04:59)
[2017-01-30] MEDS: FORTAZ or TAZICEF INJ 1 GM in NS 50 ML IV + SPIKE MINIBAG* 50 ML IV SCH (04:59)
[2017-01-30 05:42] LABS: ERYTHROCYTE SEDIMENTATION RATE 20 MM/HOUR (0-15)
[2017-01-30 05:52] LABS: PLATELET MORPHOLOGY COMMENT NORMAL (NORMAL)
--- NOTE | 2017-01-30 06:31 | RAD ---
HISTORY: Shortness of breath Study: Chest one view Comparison: January 29, 2017 Findings: The trachea is midline. The cardiac silhouette is unremarkable. The lungs are clear without focal infiltrate or effusion. The bony thorax is unremarkable. IMPRESSION: 1. No acute cardiopulmonary disease. Reported By:
[2017-01-30] MEDS ORDERED: ZESTRIL TAB 20 MG ONE (08:27)
[2017-01-30] MEDS: ZESTRIL TAB 20 MG PO SCH (08:45)
[2017-01-30] MEDS: ASPIRIN EC 81 MG PO SCH (08:45)
[2017-01-30] MEDS: PROzac PO SCH (08:45)
[2017-01-30] MEDS: PLAVIX PO SCH (08:46)
[2017-01-30] MEDS: LOVENOX INJ 40 MG SYR SC SCH (08:46)
[2017-01-30 08:51] VITALS: BP 127/78
[2017-01-30] MEDS: PROTONIX TAB 40 MG PO SCH (09:51)
[2017-01-30] MEDS: NORVASC TAB 5 MG PO SCH (09:51)
[2017-01-30] MEDS: ZIAC 5/6.25 MG PO SCH (09:51)
[2017-01-30] MEDS: LEVAQUIN PREMIX IV 750 MG 750 MG/150 ML BAG IV SCH (09:52)
--- NOTE | 2017-01-30 12:59 | DR.CARTERD ---
- Discharge Summary for: Discharge Summary for Date of:: 01/30/17 - Admission Date Date of Admission: 01/27/17 - Admission Diagnoses Admission Diagnosis: COPD Exacerbation. Cough. Fever. Weakness - Discharge Date Discharge Date: 01/30/17 - Discharge Diagnoses Discharge Diagnosis: Pneumonia COPD Exacerbation Weakness Increased WBC count - Hospital Course Hospital Course: Patient presented to the emergency room with complaints of cough, chest, fever and weakness that has gotten worse over the past day. Patient admitted with COPD Exacerbation, Weakness. Patient started on IVF, IV Antibiotics. Patient has responded well to fortaz and levaquin IV as well as solumedrol and nebulizers. Patient was tested for oxygen upon ambulation of 8min the lowest his oxygen saturation dropped was to 96% so he will not qualify for home oxygen. Patent states he is feeling much better this am and is ready to go home. Vital Signs 98.1, 108, 19, 95% , 127/78. Labs are within normal limits with the exception of WBC 14.8 which came down from 19.9, RBC 47.12. Hgb 12.7, Hct 37.2, Neut% 93.4, Lymph% 3.8, Eos% 0.0, Baso% 0.1, Neut# 13.8, Lymph# 0.6, ESR 20, Est GFR 57, Glucose 107, Calcium 8.4, Alkaline Phosphate 32, CRP 26.00, Albumin 2.7, A:bumin/Globulin Ratio 0.7. Ranjan is being discharged home in stable condition to resume his home medications with the addition of symbicort, Spiriva, albuterol, Duoneb with nebulizer machine, Levaquin 750mg PO Daily for 1 week, and Medrol dose pack. Patient will follow up in the office in 1 week. Labs: Labs are within normal limits with the exception of WBC 14.8 which came down from 19.9, RBC 47.12. Hgb 12.7, Hct 37.2, Neut% 93.4, Lymph% 3.8, Eos% 0.0, Baso % 0.1, Neut# 13.8, Lymph# 0.6, ESR 20, Est GFR 57, Glucose 107, Calcium 8.4, Alkaline Phosphate 32, CRP 26.00, Albumin 2.7, A:bumin/Globulin Ratio 0.7 - Discharge Medications Discharge Medications: Alprazolam [Xanax 1 mg] 1 mg PO TID PRN 01/27/17 [History] Amlodipine Besylate [NORVASC 5 MG *] 5 mg PO DAILY 01/27/17 [History] Aspirin [Aspirin Adult Low Dose] 81 mg PO DAILY 01/27/17 [History] Bisoprolol & Hydrochlorothiazi [Bisoprolol Fumarate/[place] 5-6.25 mg] 1 tab PO DAILY 01/27/17 [History] Clopidogrel Bisulfate [PLAVIX TAB 75 MG *] 75 mg PO DAILY 01/27/17 [History] Fluoxetine HCl [Prozac cap 40 mg] 40 mg PO DAILY 01/27/17 [History] Lisinopril 20 mg PO DAILY 01/27/17 [History] Olanzapine [ZYPREXA 2.5 MG *] 2.5 mg PO HS 01/27/17 [History] Pantoprazole Sodium 40 mg [PROTONIX 40 MG *] 40 mg PO DAILY 01/27/17 [History] Simvastatin [ZOCOR 40 MG *] 40 mg PO HS 01/27/17 [History] Albuterol Sulfate [Ventolin Hfa Inhaler] 1 puff INH QID PRN #1 aer 01/30/17 [Rx] Budesonide-Formoterol [SYMBICORT INH 160/4.5 mcg] 1 puff IN Q12H #1 inh [Rx] Ipratropium/Albuterol Nebule [DUONEB 0.5 MG/3 MG NEBULE *] 1 ea NEB Q4RESP PRN # 60 each 01/30/17 [Rx] Levofloxacin [Levaquin Tab 750 mg] 750 mg PO Q24H #7 tab 01/30/17 [Rx] Methylprednisolone Dosepak 4Mg [MEDROL DOSEPAK (4 mg tab x 21)] 1 emily PO ONCE # 1 emily 01/30/17 [Rx] Tiotropium [place] Monohydrate [SPIRIVA HANDIHALER (30 DOSE) *] 1 cap IN BID #1 inhaler 01/30/17 [Rx] - Discharge Disposition Discharge Disposition: Home
== END 2017-01-30 10:25 | disposition home or self-care (01) | DRG 190 ==
LOC: ER 23:31 → OBSVTOIN 01-27 05:22 → ICU 01-27 05:22
PROVIDERS: ADMIT Internal Medicine; ATTEND Internal Medicine
DX: J44.1 Chronic obstructive pulmonary disease with (acute) exacerbation (principal); J18.8 Other pneumonia, unspecified organism; R06.02 Shortness of breath; I10 Essential (primary) hypertension; R07.82 Intercostal pain; R91.1 Solitary pulmonary nodule; R60.0 Localized edema; D72.828 Other elevated white blood cell count; R79.1 Abnormal coagulation profile; E11.65 Type 2 diabetes mellitus with hyperglycemia; R94.4 Abnormal results of kidney function studies; R26.89 Other abnormalities of gait and mobility
CPT/HCPCS: 36415; 36600; 51702; 71010; 71275; 80053; 81001; 82550; 82553; 82803; 84484; 85025; 85378; 85652; 86140; 87040; 87086; 93005; 93970; 94640; 94760; 96365; 96367; 96374; 96375; 97535; 99284; A4222; J0696; J0713; J1650; J1956; J2920; J2930; J7620

== ENCOUNTER 2018-02-22 06:01 | Inpatient (IN) ==
--- NOTE | 2018-02-22 06:14 | DR.GENAD ---
HPI - PCP Primary Care Physician: NLP - Complaint/Symptoms Chief Complaint Doctors Comments: EMS staff states they were called to the residence because of SOB. He was found with inspiratory wheezing initially. they administeed a neb. treatment and re-examination showed the wheezing had resolved and his O2 sat was higher than initially noted. He has no complain of chest pain. His daughter came in later (at about 0730 hrs.) and provided further information relating to the pt. He has had SOB + wheezinf for the preceeding 2 days. Also noted with gait changes and generally weaker over same period of time. - Nurses notes reviewed Nurses Notes Review: Yes - Source History Provided: Patient, EMS - Mode of Arrival Mode of Arrival: EMS PMH - PMH Past Medical History: Arthritis, COPD, Dementia, GERD, Hypertension Past Surgical History: No - Family History Family Medical History: Cancer, Hypertension - Social History Do you use any recreational Drugs:: No ROS - Review of Systems Constitutional: No Symptoms Reported Eyes: No Symptoms Reported ENTM: No Symptoms Reported Respiratoy: Short of Breath, Wheezing Cardiovascular: No Symptoms Reported Gastrointestinal/Abdominal: No Symptoms Reported Genitourinary: No Symptoms Reported Neurological: No Symptoms Reported Musculoskeletal: No Symptoms Reported Integumentary: No Symptoms Reported Hematologic/Lymphatic: No Symptoms Reported Endocrine: No Symptoms Reported Psychiatric: No Symptoms Reported All Other Systems: Reviewed and Negative PE - General Limitations: No Limitations General Appearance: Alert, In No Apparent Distress - Head Head Exam: Normal Inspection - Eyes Eye exam: Normal Appearance - ENT ENT Exam: Normal Exam - Neck Neck Exam: Normal Inspection - Chest Chest Inspection: Normal Inspection, Symmetric Chest Wall Rise - Respiratory Respiratory Exam: Normal Lung Sounds Bilat - Cardiovascular Cardiovascular Exam: Regular Rate, Normal Rhythm, Normal Heart Sounds, +S1, +S2 - Abdominal Exam Abdominal Exam: Normal Inspection, Normal Bowel Sounds, Soft - Extremities Extremities Exam: Normal Inspection - Back Back Exam: Normal Inspection - Neurologic Neurological Exam: Alert, Oriented X3 - Psychiatric Psychiatric Exam: Normal Affect, Normal Mood - Skin Skin Exam: Warm, Dry, Intact, Normal Color - Vital Signs Vitals: Temperature 98.1 F Pulse Rate [Right Brachial] 81 Pulse Rate 77 Respiratory Rate 32 Blood Pressure [Right Arm] 146/90 Blood Pressure [Left Arm] 109/68 Blood Pressure 146/90 O2 Sat by Pulse Oximetry 94 ROR - Labs Reviewed Result Diagrams: 02/22/18 06:24 02/22/18 06:24 - XRAY XRAY Interpreted by: Self (CXR: Decreeased lung volumes on both sides ) - EKG Rate: 77 [place]: Normal Rhythm: NSR Block: None Hypertrophy: None ST: Normal - Labs Reviewed Laboratory: WBC 5.6 X10^3/uL (3.6-10.0) 02/22/18 06:24 RBC 4.89 X10^6/uL (4.7-6.0) 02/22/18 06:24 Hgb 15.1 g/dL (13.5-18.0) 02/22/18 06:24 Hct 44.6 % (42.0-54.0) 02/22/18 06:24 MCV 91.3 fL (80.0-100.0) 02/22/18 06:24 MCH 30.9 pg (27.0-34.0) 02/22/18 06:24 MCHC 33.9 g/dL (33.0-35.0) 02/22/18 06:24 RDW 13.3 % (11.6-16.5) 02/22/18 06:24 Plt Count 279 X10^3/uL (150.0-450.0) 02/22/18 06:24 MPV 7.3 fL (7.4-11.0) L 02/22/18 06:24 Neut % (Auto) 53.2 % (42.0-75.0) 02/22/18 06:24 Lymph % (Auto) 31.0 % (21.0-51.0) 02/22/18 06:24 [place] % (Auto) 7.2 % (0.0-13.0) 02/22/18 06:24 Eos % (Auto) 7.1 % (0.9-2.9) H 02/22/18 06:24 Baso % (Auto) 1.5 % (0.2-1.0) H 02/22/18 06:24 Neut # (Auto) 3.0 x10^3/uL (2.2-4.8) 02/22/18 06:24 Lymph # (Auto) 1.7 X10^3/uL (1.3-2.9) 02/22/18 06:24 [place] # (Auto) 0.4 x10^3/uL (0.3-0.8) 02/22/18 06:24 Eos # (Auto) 0.4 x10^3/uL (0.0-0.2) H 02/22/18 06:24 Baso # (Auto) 0.1 X10^3/uL (0.0-0.1) 02/22/18 06:24 Absolute Nucleated RBC 0.0 /100WBC 02/22/18 06:24 Sodium 138 mmol/L (136-145) 02/22/18 06:24 Corrected Sodium TNP 02/22/18 06:24 Potassium 4.1 mmol/L (3.5-5.1) 02/22/18 06:24 Chloride 102 mmol/L (98-107) 02/22/18 06:24 Carbon Dioxide 28.9 mmol/L (21-32) 02/22/18 06:24 BUN 12 mg/dL (7-18) 02/22/18 06:24 Creatinine 1.41 mg/dL (0.70-1.30) H 02/22/18 06:24 Est GFR (MDRD) Af Amer > 60 (>60) 02/22/18 06:24 Est GFR (MDRD) Non-Af 52 (>60) L 02/22/18 06:24 Glucose 91 mg/dL (65-99) 02/22/18 06:24 Calcium 9.1 mg/dL (8.5-10.1) 02/22/18 06:24 Corrected Calcium 9.7 mg/dL (8.5-10.1) 02/22/18 06:24 Total Bilirubin 0.60 mg/dL (0.2-1.0) 02/22/18 06:24 AST 16 Units/L (15-37) 02/22/18 06:24 ALT 20 Units/L (12-78) 02/22/18 06:24 Alkaline Phosphatase 58 Units/L (46-116) 02/22/18 06:24 Creatine Kinase 111 Units/L (39-308) 02/22/18 06:24 CK-MB (CK-2) 1.3 ng/mL (0-4.0) 02/22/18 06:24 CK/CKMB % Calc 1.2 % (<4) 02/22/18 06:24 Troponin I < 0.02 ng/mL (0-1.5) 02/22/18 06:24 Total Protein 7.9 g/dL (6.4-8.2) 02/22/18 06:24 Albumin 3.3 g/dL (3.4-5.0) L 02/22/18 06:24 Globulin 4.6 g/dL (2.5-4.5) H 02/22/18 06:24 Albumin/Globulin Ratio 0.7 Ratio (1.1-2.1) L 02/22/18 06:24 - Diagnosis Discharge Problem: COPD exacerbation - Discharge Plan Disposition: ADMITTED INPATIENT - Follow ups/Referrals Follow ups/Referrals: Manuel Cleary [Primary Care Provider] - 3 days - Instructions Instructions: Chronic Obstructive Pulmonary Disease Exacerbation, [id number]
[2018-02-22 06:18] VITALS: BMI 26.6
[2018-02-22 06:32] LABS: BASOPHILS # (AUTO) 0.1 X10^3/uL (0.0-0.1); BASOPHILS % (AUTO) 1.5 % (0.2-1.0); EOSINOPHILS # (AUTO) 0.4 x10^3/uL (0.0-0.2); EOSINOPHILS % (AUTO) 7.1 % (0.9-2.9); HEMATOCRIT 44.6 % (42.0-54.0); HEMOGLOBIN 15.1 g/dL (13.5-18.0); LYMPHOCYTES # (AUTO) 1.7 X10^3/uL (1.3-2.9); MEAN CORPUSCULAR HEMOGLOBIN 30.9 pg (27.0-34.0); MEAN CORPUSCULAR HGB CONC 33.9 g/dL (33.0-35.0); MEAN CORPUSCULAR VOLUME 91.3 fL (80.0-100.0); MEAN PLATELET VOLUME 7.3 fL (7.4-11.0); MONOCYTES # (AUTO) 0.4 x10^3/uL (0.3-0.8); MONOCYTES % (AUTO) 7.2 % (0.0-13.0); NEUTROPHILS % (AUTO) 53.2 % (42.0-75.0); PLATELET COUNT 279 X10^3/uL (150.0-450.0); RED BLOOD COUNT 4.89 X10^6/uL (4.7-6.0); RED CELL DISTRIBUTION WIDTH 13.3 % (11.6-16.5); WHITE BLOOD COUNT 5.6 X10^3/uL (3.6-10.0)
[2018-02-22 06:42] LABS: ALANINE AMINOTRANSFERASE 20 Units/L (12-78); ALBUMIN 3.3 g/dL (3.4-5.0); ALKALINE PHOSPHATASE 58 Units/L (46-116); ASPARTATE AMINO TRANSFERASE 16 Units/L (15-37); BLOOD UREA NITROGEN 12 mg/dL (7-18); CALCIUM 9.1 mg/dL (8.5-10.1); CARBON DIOXIDE 28.9 mmol/L (21-32); CHLORIDE 102 mmol/L (98-107); COR CA(FOR HYPOALB) 9.7 mg/dL (8.5-10.1); CREATININE 1.41 mg/dL (0.70-1.30); SODIUM 138 mmol/L (136-145); TOTAL PROTEIN 7.9 g/dL (6.4-8.2); eGFR NON BLACK RACES 52 (>60)
[2018-02-22 06:58] LABS: CKMB % 1.2 % (<4); CREATINE KINASE MB 1.3 ng/mL (0-4.0); TROPONIN I < 0.02 ng/mL (0-1.5)
[2018-02-22 07:04] LABS: CREATINE KINASE 111 Units/L (39-308)
--- NOTE | 2018-02-22 07:39 | RAD ---
Examination: AP chest History: SOB, wheezing Comparison reference 01/30/2017 Findings: Continued normal heart size. Pulmonary volumes remain moderately reduced, accentuating pulm onary markings. Suspect mild compression atelectasis in 1 or both bases. No evidence for pneumonia, p ulmonary edema or pleural fluid. Impression: No significant interval change. No acute process, see above. The Reported By:
[2018-02-22] MEDS ORDERED: LOVENOX INJ 60 MG SYR SC ONE (09:15)
[2018-02-22] MEDS ORDERED: PROVENTIL NEB TX 0.083% 2.5MG/ 3ML NEB PRN (10:11)
[2018-02-22] MEDS: DUONEB 0.5 MG/3 MG NEB SCH ×2 (12:06→16:49)
[2018-02-22] MEDS: PULMICORT NEB TX 0.5 MG NEB SCH ×2 (12:06→21:55)
[2018-02-22] MEDS: SOLU-Medrol 40 MG VIAL IVP SCH ×2 (14:02→21:09)
[2018-02-22] MEDS ORDERED: ZESTRIL TAB 20 MG ONE (14:46)
[2018-02-22] MEDS: PLAVIX PO SCH (14:50)
[2018-02-22] MEDS: ZESTRIL TAB 20 MG PO SCH (14:50)
[2018-02-22] MEDS: ZIAC 5/6.25 MG PO SCH (14:51)
[2018-02-22] MEDS: PROTONIX INJ 40 MG VIAL IVP SCH (14:51)
[2018-02-22] MEDS ORDERED: BUTT CREAM (COMPOUND) ONE (15:01)
[2018-02-22] MEDS ORDERED: BUTT CREAM (COMPOUND) TOP PRN (15:02)
[2018-02-22] MEDS: ASPIRIN 81 MG CHEWTAB PO SCH (15:23)
[2018-02-22] MEDS: NORVASC TAB 5 MG PO SCH (15:24)
[2018-02-22] MEDS: SINGULAIR TAB 10 MG PO SCH (21:09)
[2018-02-23] MEDS: DUONEB 0.5 MG/3 MG NEB SCH ×4 (00:50→17:13)
[2018-02-23] MEDS: SOLU-Medrol 40 MG VIAL IVP SCH ×4 (05:25→21:00)
[2018-02-23 05:45] LABS: BASOPHILS % (AUTO) 0.1 % (0.2-1.0); HEMATOCRIT 41.2 % (42.0-54.0); HEMOGLOBIN 14.2 g/dL (13.5-18.0); LYMPHOCYTES # (AUTO) 0.5 X10^3/uL (1.3-2.9); LYMPHOCYTES % (AUTO) 5.6 % (21.0-51.0); MEAN CORPUSCULAR HEMOGLOBIN 30.9 pg (27.0-34.0); MEAN CORPUSCULAR HGB CONC 34.4 g/dL (33.0-35.0); MEAN CORPUSCULAR VOLUME 89.9 fL (80.0-100.0); MEAN PLATELET VOLUME 7.6 fL (7.4-11.0); MONOCYTES # (AUTO) 0.1 x10^3/uL (0.3-0.8); MONOCYTES % (AUTO) 1.2 % (0.0-13.0); NEUTROPHILS # (AUTO) 7.6 x10^3/uL (2.2-4.8); NEUTROPHILS % (AUTO) 93.1 % (42.0-75.0); PLATELET COUNT 275 X10^3/uL (150.0-450.0); RED BLOOD COUNT 4.58 X10^6/uL (4.7-6.0); RED CELL DISTRIBUTION WIDTH 13.3 % (11.6-16.5); WHITE BLOOD COUNT 8.2 X10^3/uL (3.6-10.0)
[2018-02-23 05:47] LABS: ALANINE AMINOTRANSFERASE 21 Units/L (12-78); ALKALINE PHOSPHATASE 52 Units/L (46-116); ASPARTATE AMINO TRANSFERASE 20 Units/L (15-37); BLOOD UREA NITROGEN 13 mg/dL (7-18); CARBON DIOXIDE 26.8 mmol/L (21-32); CHLORIDE 102 mmol/L (98-107); COR CA(FOR HYPOALB) 9.8 mg/dL (8.5-10.1); COR NA(FOR HYPERGLY) 137 mmol/L (136-145); CREATININE 1.35 mg/dL (0.70-1.30); SODIUM 136 mmol/L (136-145); TOTAL PROTEIN 7.6 g/dL (6.4-8.2); eGFR NON BLACK RACES 54 (>60)
[2018-02-23 06:42] LABS: PLATELET MORPHOLOGY COMMENT NORMAL (NORMAL)
--- NOTE | 2018-02-23 06:56 | RAD ---
HISTORY: Wheezing, shortness of breath Study: Chest AP portable Comparison: 02/22/2018, 01/30/2018 Findings: The heart is within normal limits in size. The briseida are normal. The lungs are mildly hypo inflated bu t free of acute infiltrates. No pleural effusions are identified. The bony thorax is unremarkable wit h the exception of degenerative joint disease in the right glenohumeral joint. IMPRESSION: Lungs mildly hypo inflated but clear Reported By:
[2018-02-23] MEDS ORDERED: ZESTRIL TAB 20 MG ONE (08:06)
[2018-02-23] MEDS: ASPIRIN 81 MG CHEWTAB PO SCH (08:07)
[2018-02-23] MEDS: NORVASC TAB 5 MG PO SCH (08:08)
[2018-02-23] MEDS: PROTONIX INJ 40 MG VIAL IVP SCH (08:08)
[2018-02-23] MEDS: ZIAC 5/6.25 MG PO SCH (08:08)
[2018-02-23] MEDS: ZESTRIL TAB 20 MG PO SCH (08:08)
[2018-02-23] MEDS: PLAVIX PO SCH (08:08)
[2018-02-23] MEDS ORDERED: NORCO 10/325 TAB PO PRN (09:17)
[2018-02-23] MEDS ORDERED: FLUOXETINE 40 MG PO SCH (09:30)
[2018-02-23] MEDS ORDERED: PATIENT'S HOME MEDICATION (Tiotropium Bromide 1 CAP) IN SCH (09:30)
[2018-02-23] MEDS: PROzac PO SCH (09:44)
[2018-02-23 10:43] LABS: CKMB % 0.6 % (<4); CREATINE KINASE 324 Units/L (39-308); TROPONIN I < 0.02 ng/mL (0-1.5)
[2018-02-23] MEDS: PULMICORT NEB TX 0.5 MG NEB SCH ×2 (11:13→21:13)
--- NOTE | 2018-02-23 16:30 | DR.H&P ---
H&P - History & Physical for Day of: H&P Date: 02/22/18 - Chief Complaint Chief Complaint: short of breath - History of Present Illness History of Present Illness: is a 78 year old patient of ours who presented to the emergency room via EMS with complaints of shortness of breath. Family states, He has been weak and falling for the past 3 days and he has been very short of breath. His gait is impaired and he is not able to get around as good as he used to. EMS reported inspiratory wheezing initially, but states that improvement was noted after administration of a neb treatment. Medical history includes the following: TIA, Dementia, HTN, Bronchitis, COPD, Emphysema, GERD, Esophageal Disorders, UTI, Cystitis, Muscle weakness, Arthritis , Eye surgery, Esophagus dilated, RT Knee surgery, LT Hip surgery. On arrival, vitals were 98.1, 81, 32, 94% NC/2L, 146/90. Labs were obtained. Abnormal lab values include the following: Labs: MPV 7.3, Creatinine 1.41, GFR (NON) 52, Albumin 3.3, Globulin 4.6, A/G ratio 0.7. Chest x-ray revealed: Continued normal heart size. Pulmonary volumes remain moderately reduced, accentuating pulmonary markings. Suspect mild compression atelectasis in 1 or both bases. No evidence for pneumonia, pulmonary edema or pleural fluid. EKG showed sinus rhythm with a heart rate of 77. Patient admitted to the hospital for further evaluation of exacerbation of COPD. He was started on Solumedrol IVP, Neb treatments, and Singulair. We will follow up with am labs and continue to monitor patient. - Past Medical History Past Medical History: Arthritis, COPD, Dementia, GERD, Hypertension Additional Medical History: TIA, Cystitis - Past Surgical History Surgical History: Ortho Surgery - Family History Family Medical History: Cancer, Hypertension - Social History Does patient currently use any type of tobacco product: No Have you used tobacco products in the last 12 months: No Does any household member use tobacco: No Alcohol Use: None Drug Use: None - Medications Home Medications: No Known Drug Allergies Allergy (Verified 02/22/18 07:54) CONTINUE taking the following medications Pat 5 - 6 drp SUBLINGUAL DAILY PRN 02/22/18 [History] aspirin 1 tab PO DAILY 02/22/18 [History] bisoprolol-hydrochlorothiazide 1 tab PO DAILY 02/22/18 [History] gabapentin 1 cap PO TID PRN 02/22/18 [History] hydrocodone-acetaminophen 1 tab PO QID PRN 02/22/18 [History] lisinopril 1 tab PO DAILY 02/22/18 [History] - Review of Systems Constitutional: Weakness (falls), Other (falls) Eyes: No Symptoms Reported ENT: No Symptoms Reported Respiratory: Shortness of Breath, SOB with Excertion, Wheezing Cardiovascular: No Symptoms Reported Gastrointestinal: No Symptoms Reported Genitourinary: No Symptoms Reported Musculoskeletal: No Symptoms Reported Skin: No Symptoms Reported Neurological: Weakness, Incoordination - Physical Exam Vital Signs: Temperature 98 F Pulse Rate [Right Brachial] 95 Pulse Rate 83 Respiratory Rate 20 Blood Pressure [Right Arm] 135/79 Blood Pressure [Left Arm] 109/68 Blood Pressure 146/90 O2 Sat by Pulse Oximetry 98 Oriented: Normal Eyes: Normal Ear: Normal Nose: Normal Throat: Normal Respiratory: Wheezes Throughout Cardiovascular: Normal, S3, S4, Murmur : Normal Auscultation: Bowel Sounds: Normal Palpation: Normal Tenderness: Normal Skin: Normal Musculoskeletal: Normal Psychiatric: Normal Mood Description: Calm Affect: Normal Speech Pattern: Clear - Assessment/Plan (1) COPD exacerbation Status: Acute Plan: admit, respiratory treatments, supplemental oxygen, solu-medrol 40mg iv q8h, continue to monitor - Allergies Allergies/Adverse Reactions: Allergies Allergy/AdvReac Type Severity Reaction Status Date / Time No Known Drug Allergies Allergy Verified 02/22/18 07:54
--- NOTE | 2018-02-23 18:02 | PCM.PROG ---
Progress Note - Progress Note for Day of Date of Exam: 02/23/18 - Subjective Subjective: WAS ADMITTED FOR COPD EXACERBATION AND FREQUENT FALLS. TODAY , PATIENT IS ALERT AND ORIENTED, LYING IN BED ON MORNING ROUNDS. HE IS NOTED WITH COMPLAINTS OF BILATERAL LEG WEAKNESS AND SHORTNESS OF BREATH. ON EXAMINATION, HEART IS REGULAR IN RATE AND RHYTHM. BILATERAL LUNGS ARE NOTED WITH DIMINISHED LUNG SOUNDS THROUGHOUT. ABDOMEN IS ROUND, SOFT, AND NON-TENDER WITH NORMAL BOWEL SOUNDS NOTED IN ALL QUADRANTS. 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 HIS VITALS THIS MORNING ARE 98.0-95-20-95%-115/79. LABS WERE OBTAINED. ABNORMAL LAB VALUES INCLUDE THE FOLLOWING: RBC 2.58, HCT 41.2, CREATININE 1.35, GLUCOSE 135, CREATINE KINASE INCREASED FROM 111 TO 324, ALBUMIN 3.0, GLOBULIN 4.6. A CHEST XRAY OBTAINED TODAY AND REVEALED LUNG MILDLY HYPO INFLATED BUT CLEAR. TODAY, WE WILL OBTAIN A BRAIN CT TO RULE OUT ACUTE PROCESS AND START NORMAL SALINE AT 100ML/HR FOR TREATMENT OF RHABDOMYOLYSIS. OTHERWISE, WE PLAN TO FOLLOW UP WITH AM LABS AND CONTINUE TO MONTIOR PATIENT. - Past Medical Family Social History Past Med/Fam/Surg Hx: No changes since H&P Allergies: Allergies No Known Drug Allergies Allergy (Verified 02/22/18 07:54) - Review of Systems ROS: No change since H&P - Vital Signs and I&O's Vital Signs: Temperature 97.6 F Pulse Rate [Right Brachial] 94 Pulse Rate 90 Respiratory Rate 20 Blood Pressure [Right Arm] 121/72 Blood Pressure [Left Arm] 109/68 Blood Pressure 146/90 O2 Sat by Pulse Oximetry 92 Intake and Output: Intake & Output 02/21/18 02/22/18 02/23/18 02/24/18 11:59 11:59 11:59 11:59 Intake Total 730 / 730 2149 Output Total 700 / 700 Balance 2149 - Physical Exam Oriented: Normal Eyes: Normal Ear: Normal Nose: Normal Throat: Normal Respiratory: Generalized, Diminished Cardiovascular: Normal, S3, S4, Murmur : Normal Auscultation: Bowel Sounds: Normal Palpation: Normal Tenderness: Normal Skin: Normal Musculoskeletal: Normal Psychiatric: Normal Mood Description: Calm Affect: Normal Speech Pattern: Clear - Laboratory and Diagnostics Result Diagrams: 02/23/18 04:30 02/23/18 04:30 Labs: Laboratory WBC 8.2 X10^3/uL (3.6-10.0) 02/23/18 04:30 RBC 4.58 X10^6/uL (4.7-6.0) L 02/23/18 04:30 Hgb 14.2 g/dL (13.5-18.0) 02/23/18 04:30 Hct 41.2 % (42.0-54.0) L 02/23/18 04:30 MCV 89.9 fL (80.0-100.0) 02/23/18 04:30 MCH 30.9 pg (27.0-34.0) 02/23/18 04:30 MCHC 34.4 g/dL (33.0-35.0) 02/23/18 04:30 RDW 13.3 % (11.6-16.5) 02/23/18 04:30 Plt Count 275 X10^3/uL (150.0-450.0) 02/23/18 04:30 Plt Count Comment Adequate (ADEQUATE) 02/23/18 04:30 MPV 7.6 fL (7.4-11.0) 02/23/18 04:30 Neut % (Auto) 93.1 % (42.0-75.0) H 02/23/18 04:30 Lymph % (Auto) 5.6 % (21.0-51.0) L 02/23/18 04:30 Kimball % (Auto) 1.2 % (0.0-13.0) 02/23/18 04:30 Eos % (Auto) 0.0 % (0.9-2.9) L 02/23/18 04:30 Baso % (Auto) 0.1 % (0.2-1.0) L 02/23/18 04:30 Neut # (Auto) 7.6 x10^3/uL (2.2-4.8) H 02/23/18 04:30 Lymph # (Auto) 0.5 X10^3/uL (1.3-2.9) L 02/23/18 04:30 Kimball # (Auto) 0.1 x10^3/uL (0.3-0.8) L 02/23/18 04:30 Eos # (Auto) 0.0 x10^3/uL (0.0-0.2) 02/23/18 04:30 Baso # (Auto) 0.0 X10^3/uL (0.0-0.1) 02/23/18 04:30 Absolute Nucleated RBC 0.0 /100WBC 02/23/18 04:30 Total Counted 100 02/23/18 04:30 Neutrophils % (Manual) 92 % (39-76) H 02/23/18 04:30 Lymphocytes % (Manual) 8 % (13-43) L 02/23/18 04:30 Plt Morphology Comment Normal (NORMAL) 02/23/18 04:30 RBC Morphology Normal (NORMAL) 02/23/18 04:30 Sodium 136 mmol/L (136-145) 02/23/18 04:30 Corrected Sodium 137 mmol/L (136-145) 02/23/18 04:30 Potassium 4.1 mmol/L (3.5-5.1) 02/23/18 04:30 Chloride 102 mmol/L (98-107) 02/23/18 04:30 Carbon Dioxide 26.8 mmol/L (21-32) 02/23/18 04:30 BUN 13 mg/dL (7-18) 02/23/18 04:30 Creatinine 1.35 mg/dL (0.70-1.30) H 02/23/18 04:30 Est GFR (MDRD) Af Amer > 60 (>60) 02/23/18 04:30 Est GFR (MDRD) Non-Af 54 (>60) L 02/23/18 04:30 Glucose 135 mg/dL (65-99) H 02/23/18 04:30 Calcium 9.0 mg/dL (8.5-10.1) 02/23/18 04:30 Corrected Calcium 9.8 mg/dL (8.5-10.1) 02/23/18 04:30 Total Bilirubin 0.50 mg/dL (0.2-1.0) 02/23/18 04:30 AST 20 Units/L (15-37) 02/23/18 04:30 ALT 21 Units/L (12-78) 02/23/18 04:30 Alkaline Phosphatase 52 Units/L (46-116) 02/23/18 04:30 Creatine Kinase 324 Units/L (39-308) H 02/23/18 10:00 CK-MB (CK-2) 2.0 ng/mL (0-4.0) 02/23/18 10:00 CK/CKMB % Calc 0.6 % (<4) 02/23/18 10:00 Troponin I < 0.02 ng/mL (0-1.5) 02/23/18 10:00 Total Protein 7.6 g/dL (6.4-8.2) 02/23/18 04:30 Albumin 3.0 g/dL (3.4-5.0) L 02/23/18 04:30 Globulin 4.6 g/dL (2.5-4.5) H 02/23/18 04:30 Albumin/Globulin Ratio 0.7 Ratio (1.1-2.1) L 02/23/18 04:30 - Plan (1) COPD exacerbation Status: Acute Plan: admit, respiratory treatments, supplemental oxygen, solu-medrol 40mg iv q8h, continue to monitor (2) Rhabdomyolysis Status: Acute Qualifiers: Rhabdomyolysis type: non-traumatic Qualified Code(s): M62.82 - Rhabdomyolysis Plan: NORMAL SALINE AT 100ML/HR, CONTINUE TO MONITOR
[2018-02-23] MEDS: SINGULAIR TAB 10 MG PO SCH (20:56)
[2018-02-23] MEDS: ZOCOR TAB 40 MG PO SCH (20:56)
[2018-02-24] MEDS: DUONEB 0.5 MG/3 MG NEB SCH ×4 (01:29→17:18)
[2018-02-24 05:35] LABS: BASOPHILS % (AUTO) 0.2 % (0.2-1.0); HEMATOCRIT 39.5 % (42.0-54.0); HEMOGLOBIN 13.4 g/dL (13.5-18.0); LYMPHOCYTES # (AUTO) 0.8 X10^3/uL (1.3-2.9); LYMPHOCYTES % (AUTO) 3.7 % (21.0-51.0); MEAN CORPUSCULAR HEMOGLOBIN 30.6 pg (27.0-34.0); MEAN CORPUSCULAR HGB CONC 33.8 g/dL (33.0-35.0); MEAN CORPUSCULAR VOLUME 90.5 fL (80.0-100.0); MEAN PLATELET VOLUME 7.5 fL (7.4-11.0); MONOCYTES # (AUTO) 0.6 x10^3/uL (0.3-0.8); NEUTROPHILS # (AUTO) 19.9 x10^3/uL (2.2-4.8); NEUTROPHILS % (AUTO) 93.1 % (42.0-75.0); PLATELET COUNT 295 X10^3/uL (150.0-450.0); RED BLOOD COUNT 4.36 X10^6/uL (4.7-6.0); RED CELL DISTRIBUTION WIDTH 13.3 % (11.6-16.5); WHITE BLOOD COUNT 21.3 X10^3/uL (3.6-10.0)
[2018-02-24 06:27] LABS: ALANINE AMINOTRANSFERASE 22 Units/L (12-78); ALKALINE PHOSPHATASE 43 Units/L (46-116); ASPARTATE AMINO TRANSFERASE 38 Units/L (15-37); BLOOD UREA NITROGEN 18 mg/dL (7-18); CALCIUM 8.6 mg/dL (8.5-10.1); CARBON DIOXIDE 25.2 mmol/L (21-32); CHLORIDE 99 mmol/L (98-107); CKMB % 0.5 % (<4); COR CA(FOR HYPOALB) 9.4 mg/dL (8.5-10.1); COR NA(FOR HYPERGLY) 133 mmol/L (136-145); CREATINE KINASE 598 Units/L (39-308); CREATININE 1.29 mg/dL (0.70-1.30); SODIUM 133 mmol/L (136-145); TOTAL PROTEIN 6.9 g/dL (6.4-8.2); TROPONIN I < 0.02 ng/mL (0-1.5); eGFR NON BLACK RACES 57 (>60)
[2018-02-24] MEDS: SOLU-Medrol 40 MG VIAL IVP SCH ×3 (06:27→21:06)
[2018-02-24 06:28] LABS: PLATELET MORPHOLOGY COMMENT NORMAL (NORMAL)
[2018-02-24] MEDS: PULMICORT NEB TX 0.5 MG NEB SCH ×2 (08:44→20:25)
[2018-02-24] MEDS ORDERED: ZESTRIL TAB 20 MG ONE (09:11)
[2018-02-24] MEDS: ASPIRIN 81 MG CHEWTAB PO SCH (09:12)
[2018-02-24] MEDS: ZESTRIL TAB 20 MG PO SCH (09:12)
[2018-02-24] MEDS: PLAVIX PO SCH (09:13)
[2018-02-24] MEDS: ZIAC 5/6.25 MG PO SCH (09:13)
[2018-02-24] MEDS: NORVASC TAB 5 MG PO SCH (09:13)
[2018-02-24] MEDS: PROTONIX INJ 40 MG VIAL IVP SCH (09:13)
[2018-02-24] MEDS: PROzac PO SCH (09:13)
--- NOTE | 2018-02-24 10:07 | CT ---
HISTORY: Altered mental status and falls. Study: CT brain without contrast Comparison: None available. Technique: Multiple axial images of the brain were obtained from the skull base to the vertex without administra tion of IV contrast. Dose reduction techniques including Automated Exposure Control (AEC) and adjust ment of mA and kV were utilized. Findings: Remote right frontal and right parietal/occipital infarcts with associated encephalomalacia and ex va cuo dilatation. Remote right cerebellar infarct with associated encephalomalacia is also seen. Age-re lated cortical atrophy and chronic small vessel ischemic changes. No acute intraparenchymal hemorrhag e or mass can be identified. No extra-axial fluid collections are seen. No alteration in the attenu ation of the brain parenchyma can be identified to suggest acute or subacute ischemic change. Age-re lated ventricular prominence. The extracranial structures are grossly unremarkable. IMPRESSION: No acute intracranial pathology. If clinically concerned for acute ischemia/infarction MR I brain is more sensitive. Reported By:
[2018-02-24] MEDS ORDERED: XANAX PO PRN (10:18)
--- NOTE | 2018-02-24 15:02 | PCM.PROG ---
Progress Note - Progress Note for Day of Date of Exam: 02/24/18 - Subjective Subjective: WAS ADMITTED FOR COPD EXACERBATION AND FREQUENT FALLS. TODAY , PATIENT IS ALERT AND ORIENTED, LYING IN BED ON MORNING ROUNDS. HE CONTINUES COMPLAINTS OF BILATERAL LEG WEAKNESS AND SHORTNESS OF BREATH. ON EXAMINATION, HEART IS REGULAR IN RATE AND RHYTHM. BILATERAL LUNGS ARE NOTED WITH DIMINISHED LUNG SOUNDS THROUGHOUT. ABDOMEN IS ROUND, SOFT, AND NON-TENDER WITH NORMAL BOWEL SOUNDS NOTED IN ALL QUADRANTS. HIS VITALS THIS MORNING ARE 97.9-75-20-96%- 128/74. LABS WERE OBTAINED. ABNORMAL LAB VALUES INCLUDE THE FOLLOWING: WBC INCREASED FROM 8.2 TO 21.3. THIS IS LIKELY DUE TO ADMINISTRATION OF SOLU-MEDROL FOR THE COPD. RBC 4.36, HGB 13.4, HCT 39.5, SODIUM 133, GLUCOSE 119, AST 38, ALK PHOS 43, CREATINE KINASE INCREASED FROM 111 TO 324 [address] A BRA[address] WAS OBTAINED TODAY AND REVEALED NO ACUTE INTRACRANIAL PATHOLOGY. TODAY, WE WILL CONTINUE WITH IV FLUIDS FOR TREATMENT OF RHABDOMYOLYSIS. OTHERWISE, WE PLAN TO FOLLOW UP WITH AM LABS AND CONTINUE TO MONTIOR PATIENT. - Past Medical Family Social History Past Med/Fam/Surg Hx: No changes since H&P Allergies: Allergies No Known Drug Allergies Allergy (Verified 02/22/18 07:54) - Review of Systems ROS: No change since H&P - Vital Signs and I&O's Vital Signs: Temperature 98 F Pulse Rate [Right Brachial] 94 Pulse Rate 90 Respiratory Rate 20 Blood Pressure [Right Arm] 130/75 Blood Pressure [Left Arm] 109/68 Blood Pressure 146/90 O2 Sat by Pulse Oximetry 93 Intake and Output: Intake & Output 02/22/18 02/23/18 02/24/18 02/25/18 11:59 11:59 11:59 11:59 Intake Total 730 / 730 2880 / 2880 Output Total 700 / 700 Balance 2880 / 2880 - Physical Exam Oriented: Normal Eyes: Normal Ear: Normal Nose: Normal Throat: Normal Respiratory: Generalized, Diminished Cardiovascular: Normal, S3, S4, Murmur : Normal Auscultation: Bowel Sounds: Normal Palpation: Normal Tenderness: Normal Skin: Normal Musculoskeletal: Normal Psychiatric: Normal Mood Description: Calm Affect: Normal Speech Pattern: Clear, Appropriate - Laboratory and Diagnostics Result Diagrams: 02/24/18 05:11 07/03/18 05:11 Labs: Laboratory WBC 21.3 X10^3/uL (3.6-10.0) H D 02/24/18 05:11 RBC 4.36 X10^6/uL (4.7-6.0) L 02/24/18 05:11 Hgb 13.4 g/dL (13.5-18.0) L 02/24/18 05:11 Hct 39.5 % (42.0-54.0) L 02/24/18 05:11 MCV 90.5 fL (80.0-100.0) 02/24/18 05:11 MCH 30.6 pg (27.0-34.0) 02/24/18 05:11 MCHC 33.8 g/dL (33.0-35.0) 02/24/18 05:11 RDW 13.3 % (11.6-16.5) 02/24/18 05:11 Plt Count 295 X10^3/uL (150.0-450.0) 02/24/18 05:11 Plt Count Comment Adequate (ADEQUATE) 02/24/18 05:11 MPV 7.5 fL (7.4-11.0) 02/24/18 05:11 Neut % (Auto) 93.1 % (42.0-75.0) H 02/24/18 05:11 Lymph % (Auto) 3.7 % (21.0-51.0) L 02/24/18 05:11 [place] % (Auto) 3.0 % (0.0-13.0) 02/24/18 05:11 Eos % (Auto) 0.0 % (0.9-2.9) L 02/24/18 05:11 Baso % (Auto) 0.2 % (0.2-1.0) 02/24/18 05:11 Neut # (Auto) 19.9 x10^3/uL (2.2-4.8) H 02/24/18 05:11 Lymph # (Auto) 0.8 X10^3/uL (1.3-2.9) L 02/24/18 05:11 [place] # (Auto) 0.6 x10^3/uL (0.3-0.8) 02/24/18 05:11 Eos # (Auto) 0.0 x10^3/uL (0.0-0.2) 02/24/18 05:11 Baso # (Auto) 0.0 X10^3/uL (0.0-0.1) 02/24/18 05:11 Absolute Nucleated RBC 0.0 /100WBC 02/24/18 05:11 Total Counted 100 02/24/18 05:11 Neutrophils % (Manual) 89 % (39-76) H 02/24/18 05:11 Lymphocytes % (Manual) 10 % (13-43) L 02/24/18 05:11 Monocytes % (Manual) 1 % (4-9) L 02/24/18 05:11 Plt Morphology Comment Normal (NORMAL) 02/24/18 05:11 RBC Morphology Normal (NORMAL) 02/24/18 05:11 Sodium 133 mmol/L (136-145) L 02/24/18 05:11 Corrected Sodium 133 mmol/L (136-145) L 02/24/18 05:11 Potassium 4.6 mmol/L (3.5-5.1) 02/24/18 05:11 Chloride 99 mmol/L (98-107) 02/24/18 05:11 Carbon Dioxide 25.2 mmol/L (21-32) 02/24/18 05:11 BUN 18 mg/dL (7-18) 02/24/18 05:11 Creatinine 1.29 mg/dL (0.70-1.30) 02/24/18 05:11 Est GFR (MDRD) Af Amer > 60 (>60) 02/24/18 05:11 Est GFR (MDRD) Non-Af 57 (>60) L 02/24/18 05:11 Glucose 119 mg/dL (65-99) H 02/24/18 05:11 Calcium 8.6 mg/dL (8.5-10.1) 02/24/18 05:11 Corrected Calcium 9.4 mg/dL (8.5-10.1) 02/24/18 05:11 Total Bilirubin 0.40 mg/dL (0.2-1.0) 02/24/18 05:11 AST 38 Units/L (15-37) H 02/24/18 05:11 ALT 22 Units/L (12-78) 02/24/18 05:11 Alkaline Phosphatase 43 Units/L (46-116) L 02/24/18 05:11 Creatine Kinase 598 Units/L (39-308) H 02/24/18 05:11 CK-MB (CK-2) 3.0 ng/mL (0-4.0) 02/24/18 05:11 CK/CKMB % Calc 0.5 % (<4) 02/24/18 05:11 Troponin I < 0.02 ng/mL (0-1.5) 02/24/18 05:11 Total Protein 6.9 g/dL (6.4-8.2) 02/24/18 05:11 Albumin 3.0 g/dL (3.4-5.0) L 02/24/18 05:11 Globulin 3.9 g/dL (2.5-4.5) 02/24/18 05:11 Albumin/Globulin Ratio 0.8 Ratio (1.1-2.1) L 02/24/18 05:11 - Plan (1) COPD exacerbation Status: Acute Plan: admit, respiratory treatments, supplemental oxygen, solu-medrol 40mg iv q8h, continue to monitor (2) Rhabdomyolysis Status: Acute Qualifiers: Rhabdomyolysis type: non-traumatic Qualified Code(s): M62.82 - Rhabdomyolysis Plan: NORMAL SALINE AT 100ML/HR, CONTINUE TO MONITOR
[2018-02-24] MEDS: SINGULAIR TAB 10 MG PO SCH (21:05)
[2018-02-24] MEDS: ZOCOR TAB 40 MG PO SCH (21:05)
[2018-02-25] MEDS: DUONEB 0.5 MG/3 MG NEB SCH ×2 (00:49→05:10)
[2018-02-25 05:29] LABS: BASOPHILS % (AUTO) 0.1 % (0.2-1.0); HEMATOCRIT 38.1 % (42.0-54.0); LYMPHOCYTES # (AUTO) 0.7 X10^3/uL (1.3-2.9); LYMPHOCYTES % (AUTO) 4.5 % (21.0-51.0); MEAN CORPUSCULAR HEMOGLOBIN 30.6 pg (27.0-34.0); MEAN CORPUSCULAR HGB CONC 34.1 g/dL (33.0-35.0); MEAN PLATELET VOLUME 7.3 fL (7.4-11.0); MONOCYTES # (AUTO) 0.5 x10^3/uL (0.3-0.8); NEUTROPHILS # (AUTO) 14.2 x10^3/uL (2.2-4.8); NEUTROPHILS % (AUTO) 92.4 % (42.0-75.0); PLATELET COUNT 278 X10^3/uL (150.0-450.0); RED BLOOD COUNT 4.23 X10^6/uL (4.7-6.0); RED CELL DISTRIBUTION WIDTH 13.4 % (11.6-16.5); WHITE BLOOD COUNT 15.4 X10^3/uL (3.6-10.0)
[2018-02-25 05:52] LABS: ALANINE AMINOTRANSFERASE 27 Units/L (12-78); ALKALINE PHOSPHATASE 37 Units/L (46-116); ASPARTATE AMINO TRANSFERASE 31 Units/L (15-37); BLOOD UREA NITROGEN 25 mg/dL (7-18); CALCIUM 8.7 mg/dL (8.5-10.1); CARBON DIOXIDE 27.6 mmol/L (21-32); CHLORIDE 99 mmol/L (98-107); CKMB % 1.4 % (<4); COR CA(FOR HYPOALB) 9.5 mg/dL (8.5-10.1); COR NA(FOR HYPERGLY) 134 mmol/L (136-145); CREATINE KINASE 252 Units/L (39-308); CREATINE KINASE MB 3.5 ng/mL (0-4.0); CREATININE 1.35 mg/dL (0.70-1.30); SODIUM 134 mmol/L (136-145); TOTAL PROTEIN 6.9 g/dL (6.4-8.2); TROPONIN I < 0.02 ng/mL (0-1.5); eGFR NON BLACK RACES 54 (>60)
[2018-02-25 05:59] LABS: BAND NEUTROPHILS % 3 % (0-10); PLATELET MORPHOLOGY COMMENT NORMAL (NORMAL)
[2018-02-25] MEDS: SOLU-Medrol 40 MG VIAL IVP SCH (06:27)
[2018-02-25] MEDS ORDERED: ZESTRIL TAB 20 MG ONE (07:39)
[2018-02-25] MEDS: NORVASC TAB 5 MG PO SCH (08:54)
[2018-02-25] MEDS: ASPIRIN 81 MG CHEWTAB PO SCH (08:54)
[2018-02-25] MEDS: PROTONIX INJ 40 MG VIAL IVP SCH (08:54)
[2018-02-25] MEDS: PLAVIX PO SCH (08:54)
[2018-02-25] MEDS: PROzac PO SCH (08:54)
[2018-02-25] MEDS: ZIAC 5/6.25 MG PO SCH (08:55)
[2018-02-25] MEDS: ZESTRIL TAB 20 MG PO SCH (08:55)
[2018-02-25 09:01] VITALS: BP 112/60
[2018-02-25] MEDS: PULMICORT NEB TX 0.5 MG NEB SCH (09:09)
--- NOTE | 2018-03-16 19:42 | DR.CARTERD ---
- Discharge Summary for: Discharge Summary for Date of:: 02/25/18 - Admission Date Date of Admission: 02/22/18 - Admission Diagnoses Admission Diagnosis: (1) COPD exacerbation (2) Shortness of breath - Discharge Date Discharge Date: 02/25/18 - Discharge Diagnoses Discharge Diagnosis: (1) COPD exacerbation (2) Rhabdomyolysis (3) Shortness of breath - Hospital Course Hospital Course: Day one, Mr. Frias is a 78 year old patient of ours who presented to the emergency room via EMS with complaints of shortness of breath. Family stated, He has been weak and falling for the past 3 days and he has been very short of breath. His gait is impaired and he is not able to get around as good as he used to. EMS reported inspiratory wheezing initially, but stated that improvement was noted after administration of a neb treatment. Medical history included the following: TIA, Dementia, HTN, Bronchitis, COPD, Emphysema, GERD, Esophageal Disorders, UTI, Cystitis, Muscle weakness, Arthritis, Eye surgery, Esophagus dilated, RT Knee surgery, LT Hip surgery. On arrival, vitals were 98.1 , 81, 32, 94% NC/2L, 146/90. Labs were obtained. Abnormal lab values included the following: Labs: MPV 7.3, Creatinine 1.41, GFR 52, Albumin 3.3, Globulin 4.6 , A/G ratio 0.7. Chest x-ray revealed: Continued normal heart size. Pulmonary volumes remain moderately reduced, accentuating pulmonary markings. Suspect mild compression atelectasis in 1 or both bases. No evidence for pneumonia, pulmonary edema or pleural fluid. EKG showed sinus rhythm with a heart rate of 77. Patient admitted to the hospital for further evaluation of exacerbation of COPD. He was started on Solumedrol IVP, Neb treatments, and Singulair. Day two, Patient was noted with complaints of bilateral leg weakness and shortness of breath. On examination, heart was regular in rate and rhythm; bilateral lungs were diminished throughout. 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 Vitals were stable. Creatine kinase increased from 111 to 324. We started treatment for Rhabdomyolysis with IV fluids, NS @ 100mls/hr. and continued to monitor. Day three, Patient continued with bilateral leg weakness and shortness of breath. On examination, heart was regular in rate and rhythm; bilateral lungs were diminished throughout. Vitals stable. Wbc increased from 8.2 to 21.3, likely due to administration of Solumedrol for COPD exacerbation. Creatine kinase increased from 324 to 598. A brain ct was obtained and reported no acute intracranial pathology. We continued treatment for Rhabdomyolysis with IV fluids and monitored. Day four, Patient was doing better upon rounds. He reported that he was feeling much better. He reported leg weakness was improving and shortness of breath was resolved. No acute distress was noted. Vital signs stable. Labs improved. Creatine kinase improved from 598 to 252. We planned for discharge. Instructions for medications and follow up were discussed with patient and family, both voiced understanding. Patient discharged home in stable condition with family. - Discharge Medications Discharge Medications: Prescriptions: Home medications albuterol sulfate 2 puff INHALATION BID PRN 03/05/18 alprazolam 1 tab PO TID PRN 03/05/18 amlodipine 1 tab PO DAILY 03/05/18 clopidogrel 1 tab PO DAILY 03/05/18 dicyclomine 1 tab PO QID PRN 03/05/18 famciclovir 1 tab PO TID 03/05/18 hydrocodone-acetaminophen 1 tab PO Q6HR PRN 03/05/18 ipratropium-albuterol 1 vial INHALATION PRN PRN 03/05/18 lisinopril 1 tab PO DAILY 03/05/18 olanzapine 1 tab PO DAILY 03/05/18 pantoprazole 1 tab PO DAILY 03/05/18 tiotropium bromide 2 inh INHALATION BID PRN 03/05/18 bisoprolol fumarate 5 mg PO DAILY #3 tab 03/06/18 fluoxetine [Prozac] 10 mg PO QAM #30 cap 03/06/18 - Discharge Disposition Discharge Disposition: Patient is to follow up in our office in one week.
== END 2018-02-25 10:35 | disposition home or self-care (01) | DRG 191 ==
LOC: MED/SURG 06:01 → ER 06:01 → MED/SURG 09:06
PROVIDERS: ADMIT Internal Medicine; ATTEND Internal Medicine
DX: R94.4 Abnormal results of kidney function studies; R26.89 Other abnormalities of gait and mobility; K21.9 Gastro-esophageal reflux disease without esophagitis; R29.6 Repeated falls; R40.4 Transient alteration of awareness; I10 Essential (primary) hypertension; M62.82 Rhabdomyolysis; R06.02 Shortness of breath; J44.1 Chronic obstructive pulmonary disease with (acute) exacerbation
CPT/HCPCS: 36415; 70450; 71010; 71045; 80053; 82550; 82553; 84484; 85025; 93005; 94640; 94760; 96365; 96367; 97110; 97112; 97163; 97166; 99284; C9113; G0378; J2920; J7613; J7620; J7626

== ENCOUNTER 2018-03-04 17:40 | Observation (INO) ==
[2018-03-04 18:09] VITALS: BMI 32.1
[2018-03-04] MEDS ORDERED: NS 1000 ML 1,000 ML IV ONE (19:40)
[2018-03-04] MEDS ORDERED: NS 1000 ML 1,000 ML ONE (19:41)
[2018-03-04] MEDS ORDERED: NIFEDIPINE CAP 10 MG ONE (19:42)
--- NOTE | 2018-03-04 20:14 | RAD ---
HISTORY: Confusion and weakness, loss of appetite Study: Single-view chest Comparison: 02/23/2018 Findings: The trachea is midline. There are low lung volumes which accentuate the central pulmonary markings no focal consolidation or pleural effusion is identified. The cardiac silhouette is unremarkable. There is no pneumothorax. The bony structures are grossly intact. IMPRESSION: 1. Low lung volumes which accentuate the pulmonary markings but without acute cardiopulmonary process identified. Reported By:
--- NOTE | 2018-03-04 20:14 | CT ---
CT head without contrast Indication: Confusion, weakness Comparison: 02/24/2018 Technique: CT images of the head were obtained without contrast. Automatic exposure control was utili Adjudica. Findings: There are chronic right frontal, bilateral parieto-occipital, and right cerebellar infarcts infarcts. There is otherwise moderate to advanced generalized brain atrophy with concomitant ventric ular and sulcal enlargement. Supratentorial white matter hypoattenuation is also similar to prior and most compatible with marked microangiopathy. There is no evidence for acute bleed, mass effect, or a bnormal extra-axial collection. No suspicious skeletal lesion. The visualized paranasal sinuses and m astoid air cells are grossly clear. Impression: No acute intracranial abnormality. Chronic findings as above. Reported By:
[2018-03-04 20:39] LABS: BASOPHILS % (AUTO) 0.7 % (0.2-1.0); EOSINOPHILS # (AUTO) 0.3 x10^3/uL (0.0-0.2); EOSINOPHILS % (AUTO) 4.4 % (0.9-2.9); LYMPHOCYTES # (AUTO) 1.4 X10^3/uL (1.3-2.9); LYMPHOCYTES % (AUTO) 19.3 % (21.0-51.0); MEAN CORPUSCULAR HEMOGLOBIN 30.2 pg (27.0-34.0); MEAN CORPUSCULAR HGB CONC 33.3 g/dL (33.0-35.0); MEAN CORPUSCULAR VOLUME 90.5 fL (80.0-100.0); MEAN PLATELET VOLUME 7.6 fL (7.4-11.0); MONOCYTES # (AUTO) 0.8 x10^3/uL (0.3-0.8); MONOCYTES % (AUTO) 11.4 % (0.0-13.0); NEUTROPHILS # (AUTO) 4.5 x10^3/uL (2.2-4.8); NEUTROPHILS % (AUTO) 64.2 % (42.0-75.0); PLATELET COUNT 311 X10^3/uL (150.0-450.0); RED CELL DISTRIBUTION WIDTH 13.3 % (11.6-16.5)
[2018-03-04 20:54] LABS: LACTIC ACID 0.8 mmol/L (0.4-2.0)
[2018-03-04 21:28] LABS: BLOOD UREA NITROGEN 14 mg/dL (7-18); CALCIUM 8.7 mg/dL (8.5-10.1); CARBON DIOXIDE 28.4 mmol/L (21-32); CHLORIDE 97 mmol/L (98-107); CREATININE 1.34 mg/dL (0.70-1.30); SODIUM 130 mmol/L (136-145); TROPONIN I < 0.02 ng/mL (0-1.5); eGFR NON BLACK RACES 55 (>60)
[2018-03-04 21:31] LABS: ALANINE AMINOTRANSFERASE 31 Units/L (12-78); ALBUMIN 2.9 g/dL (3.4-5.0); ALKALINE PHOSPHATASE 46 Units/L (46-116); ASPARTATE AMINO TRANSFERASE 18 Units/L (15-37); CKMB % 2.8 % (<4); COR CA(FOR HYPOALB) 9.6 mg/dL (8.5-10.1); CREATINE KINASE 61 Units/L (39-308); CREATINE KINASE MB 1.7 ng/mL (0-4.0); MAGNESIUM 2.4 mg/dL (1.7-2.9); TOTAL PROTEIN 6.7 g/dL (6.4-8.2)
[2018-03-05 00:54] LABS: CKMB % 2.4 % (<4); CREATINE KINASE 71 Units/L (39-308); CREATINE KINASE MB 1.7 ng/mL (0-4.0); TROPONIN I < 0.02 ng/mL (0-1.5)
[2018-03-05] MEDS: NS 1000 ML 1,000 ML IV SCH ×3 (01:01→16:07)
--- NOTE | 2018-03-05 04:30 | DR.DIZZY ---
HPI Time seen Time seen: 20:00 HPI Comment HPI Comment: WORSE TODAY. INCREASE CONFUSION. NO FEVER. Complaint Chief Complaint Doctor Comments: DIZZINESS, CONFUSION AND GENERALIZE WEAKNESS FOR SEVERAL DAYS. Chief Complaint:: Daughter states "He has been really confused and has been weak ever since he left the hospital about a week ago. He has not had an appitite at all either. He just seems really weak." Nurses Notes Reviewed Nurses Notes Review: Yes Source History Provided: Patient and Family Member Mode of Arrival Mode of Arrival: Wheelchair Timing Onset of Chief Complaint: 02/25/18 Came on: Gradually Symptom Onset: Known Duration Duration: Constant Duration: Days Location of Weakness Weakness Location: Generalized Context Onset: At rest and With light exertion Does pt take pot. toxic medication?: No History of: Electrolyte Disorder Stroke Symptoms: Acute confusion, Slurring and Dizziness Severity Severity: Abnormal activity level Modifying factors Worsens: Nothing Associated signs and symptoms Associated Signs and Symptoms: Weak and Difficult Speech PMH PMH Past Medical History: Yes Past Medical History: Arthritis, COPD, Dementia, GERD and Hypertension Past Surgical History: Yes Surgical History: Ortho Surgery Family History History of Family Medical Conditions: Yes Family Medical History: Cancer and Hypertension Social History Does patient currently use any type of tobacco product: No Have you used tobacco products in the last 12 months: No Type of Tobacco Use: None Does any household member use tobacco: No Alcohol Use: None Do you use any recreational Drugs:: No Lives With: Family Lives Where: Home infectious screening In the last 2 months have you had wt loss of >10#?: NO Have you had fever, night sweats or hemotysis?: No Have you traveled outside the country in the last 6 months?: No Isolation: Standard ROS Review of Systems Constitutional: Weakness and Fatigue; negative Chills and Fever Eyes: negative Eye Pain, Blurred Vision, Tearing and Discharge ENTM: No Symptoms Reported; negative Ear Pain, Nose Pain, Nose Congestion and Throat Pain Respiratoy: Productive Cough, Short of Breath and Wheezing Cardiovascular: Edema and Syncope (NEAR SYNCOPAL EPISODES.) Gastrointestinal/Abdominal: Abdominal Pain, Nausea and Other (PERSISTENT HICCOUGH.); negative Diarrhea and Vomiting Genitourinary: negative Dysuria and Bleeding Neurological: Headache, Pre-existing Deficit, Tingling, Weakness, Dizziness, Problems Walking and Other (CONFUSE. AMS.) Musculoskeletal: Muscle Pain Integumentary: Dryness and Rash Endocrine: Increased Thirst and Decreased Appetite; negative Flushing All Other Systems: Reviewed and Negative Unable to Obtain Due To: Altered mental status PE Vital Signs Vitals: Temperature 97.8 F Pulse Rate [Left] 71 Pulse Rate 78 Respiratory Rate 16 Blood Pressure [Right Arm] 112/60 Blood Pressure [Left Arm] 140/74 Blood Pressure 100/70 O2 Sat by Pulse Oximetry 100 General Limitations: Altered Mental Status General Appearance: Other (SLEEPY BUT AROUSABLE) Head Head Exam: Normal Inspection, Atraumatic and Normocephalic Eyes Eye exam: PERRL Pupils: Regular, Round: Bilateral and Reactive: Bilateral Sclera/Conjunctival: Normal Inspection: Bilateral Abdominal Exam Abdominal Exam: Normal Bowel Sounds and Soft; negative Tenderness Rectal Rectal Exam: Deferred Extremeties Extremities Exam: Edema Back Back Exam: Paraspinal Tenderness Neurologic Neurological Exam: Other Psychiatric Psychiatric Exam: Other (SLEEPY) Skin Skin Exam: Erythema MDM Differential Diagnosis Differential Diagnosis: Anemia, CVA, Dehydration, Dysrhythmia, Electrolyte disorder, Hypoglycemia, Labyrinthitis, Myocardial infarction, Pulmonary embolus , TIA, Central Vertigo and Peripheral Vertigo COURSE Treatment Treatment: SEE ORDERS. Education/Counseling Education/Counseling: Family Educated On: Diagnosis ROR Labs Reviewed Result Diagrams: 03/04/18 20:19 03/04/18 20:19 Laboratory: WBC 7.0 X10^3/uL (3.6-10.0) 03/04/18 20:19 RBC 4.30 X10^6/uL (4.7-6.0) L 03/04/18 20:19 Hgb 13.0 g/dL (13.5-18.0) L 03/04/18 20:19 Hct 39.0 % (42.0-54.0) L 03/04/18 20:19 MCV 90.5 fL (80.0-100.0) 03/04/18 20:19 MCH 30.2 pg (27.0-34.0) 03/04/18 20:19 MCHC 33.3 g/dL (33.0-35.0) 03/04/18 20:19 RDW 13.3 % (11.6-16.5) 03/04/18 20:19 Plt Count 311 X10^3/uL (150.0-450.0) 07/11/18 20:19 MPV 7.6 fL (7.4-11.0) 03/04/18 20:19 Neut % (Auto) 64.2 % (42.0-75.0) 03/04/18 20:19 Lymph % (Auto) 19.3 % (21.0-51.0) L 03/04/18 20:19 [place] % (Auto) 11.4 % (0.0-13.0) 03/04/18 20:19 Eos % (Auto) 4.4 % (0.9-2.9) H 03/04/18 20:19 Baso % (Auto) 0.7 % (0.2-1.0) 03/04/18 20:19 Neut # (Auto) 4.5 x10^3/uL (2.2-4.8) 03/04/18 20:19 Lymph # (Auto) 1.4 X10^3/uL (1.3-2.9) 03/04/18 20:19 [place] # (Auto) 0.8 x10^3/uL (0.3-0.8) 03/04/18 20:19 Eos # (Auto) 0.3 x10^3/uL (0.0-0.2) H 03/04/18 20:19 Baso # (Auto) 0.0 X10^3/uL (0.0-0.1) 03/04/18 20:19 Absolute Nucleated RBC 0.0 /100WBC 03/04/18 20:19 INR Target Range - 03/04/18 20:19 INR 0.99 (0.8-1.3) 03/04/18 20:19 APTT 30.1 SECONDS (22.9-36.5) 03/04/18 20:19 PTT Comment - 03/04/18 20:19 Sodium 130 mmol/L (136-145) L 03/04/18 20:19 Corrected Sodium TNP 03/04/18 20:19 Potassium 4.4 mmol/L (3.5-5.1) 03/04/18 20:19 Chloride 97 mmol/L (98-107) L 03/04/18 20:19 Carbon Dioxide 28.4 mmol/L (21-32) 03/04/18 20:19 BUN 14 mg/dL (7-18) 03/04/18 20:19 Creatinine 1.34 mg/dL (0.70-1.30) H 03/04/18 20:19 Est GFR (MDRD) Af Amer > 60 (>60) 03/04/18 20:19 Est GFR (MDRD) Non-Af 55 (>60) L 03/04/18 20:19 Glucose 89 mg/dL (65-99) 03/04/18 20:19 Lactic Acid 0.8 mmol/L (0.4-2.0) 03/04/18 20:19 Calcium 8.7 mg/dL (8.5-10.1) 03/04/18 20:19 Corrected Calcium 9.6 mg/dL (8.5-10.1) 03/04/18 20:19 Magnesium 2.4 mg/dL (1.7-2.9) 03/04/18 20:19 Total Bilirubin 0.40 mg/dL (0.2-1.0) 03/04/18 20:19 AST 18 Units/L (15-37) 03/04/18 20:19 ALT 31 Units/L (12-78) 03/04/18 20:19 Alkaline Phosphatase 46 Units/L (46-116) 03/04/18 20:19 Creatine Kinase 61 Units/L (39-308) 03/04/18 20:19 CK-MB (CK-2) 1.7 ng/mL (0-4.0) 03/04/18 20:19 CK/CKMB % Calc 2.8 % (<4) 03/04/18 20:19 Troponin I < 0.02 ng/mL (0-1.5) 03/04/18 20:19 Total Protein 6.7 g/dL (6.4-8.2) 03/04/18 20:19 Albumin 2.9 g/dL (3.4-5.0) L 03/04/18 20:19 Globulin 3.8 g/dL (2.5-4.5) 03/04/18 20:19 Albumin/Globulin Ratio 0.8 Ratio (1.1-2.1) L 03/04/18 20:19 ADDITIONAL NOTES Additional Notes Additional Notes: DISCUSS PATIENT WITH DR. TATE. HE WILL ADMIT PATIENT.
[2018-03-05 06:49] LABS: CKMB % 2.6 % (<4); CREATINE KINASE 69 Units/L (39-308); CREATINE KINASE MB 1.8 ng/mL (0-4.0); TROPONIN I < 0.02 ng/mL (0-1.5)
[2018-03-05 07:00] LABS: ALANINE AMINOTRANSFERASE 30 Units/L (12-78); ALBUMIN 2.6 g/dL (3.4-5.0); ALKALINE PHOSPHATASE 44 Units/L (46-116); ASPARTATE AMINO TRANSFERASE 19 Units/L (15-37); BLOOD UREA NITROGEN 11 mg/dL (7-18); CALCIUM 8.4 mg/dL (8.5-10.1); CARBON DIOXIDE 25.5 mmol/L (21-32); CHLORIDE 102 mmol/L (98-107); CHOL/HDL RATIO 3.8 (0.0-5.0); CHOLESTEROL 127 mg/dL (0-200); COR CA(FOR HYPOALB) 9.5 mg/dL (8.5-10.1); CREATININE 1.12 mg/dL (0.70-1.30); HDL CHOLESTEROL 33 mg/dL (40-60); SODIUM 134 mmol/L (136-145); TOTAL PROTEIN 6.3 g/dL (6.4-8.2); TRIGLYCERIDES 88 mg/dL (0-150); eGFR NON BLACK RACES > 60 (>60)
[2018-03-05 07:25] LABS: BASOPHILS # (AUTO) 0.1 X10^3/uL (0.0-0.1); EOSINOPHILS # (AUTO) 0.3 x10^3/uL (0.0-0.2); EOSINOPHILS % (AUTO) 5.2 % (0.9-2.9); HEMATOCRIT 37.6 % (42.0-54.0); HEMOGLOBIN 12.8 g/dL (13.5-18.0); LYMPHOCYTES # (AUTO) 1.4 X10^3/uL (1.3-2.9); LYMPHOCYTES % (AUTO) 24.3 % (21.0-51.0); MEAN CORPUSCULAR HEMOGLOBIN 30.9 pg (27.0-34.0); MEAN CORPUSCULAR HGB CONC 33.9 g/dL (33.0-35.0); MEAN CORPUSCULAR VOLUME 91.1 fL (80.0-100.0); MEAN PLATELET VOLUME 7.4 fL (7.4-11.0); MONOCYTES # (AUTO) 0.6 x10^3/uL (0.3-0.8); MONOCYTES % (AUTO) 10.3 % (0.0-13.0); NEUTROPHILS # (AUTO) 3.4 x10^3/uL (2.2-4.8); NEUTROPHILS % (AUTO) 59.2 % (42.0-75.0); PLATELET COUNT 300 X10^3/uL (150.0-450.0); RED BLOOD COUNT 4.13 X10^6/uL (4.7-6.0); RED CELL DISTRIBUTION WIDTH 13.1 % (11.6-16.5); WHITE BLOOD COUNT 5.8 X10^3/uL (3.6-10.0)
--- NOTE | 2018-03-05 07:49 | DR.H&P ---
H&P - History & Physical for Day of: H&P Date: 03/04/18 - Chief Complaint Chief Complaint: ALTERED MENTAL STATUS, WEAKNESS - History of Present Illness History of Present Illness: IS A 78 YEAR OLD PATIENT OF OURS WHO PRESENTED TO THE EMERGENCY ROOM WITH COMPLAINTS OF ALTERED MENTAL STATUS AND GENERALIZED WEAKNESS. PATIENT WAS DISCHARGED HOME FROM THE HOSPITAL ONE WEEK AGO FOR TREATMENT OF COPD EXACERBATION. SHE ALSO REPORTS THAT PATIENT HAS HAD A DECREASED APPETITE AND HAS COMPLAINED OF DIZZINESS. ON ARRIVAL, VITALS WERE 97.8 -78-18-95%-100/70. LABS WERE OBTAINED. ABNORMAL LAB VALUES INCLUDE THE FOLLOWING : RBC 4.30, HGB 13.0, HCT 39.0, SODIUM 130, CHLORIDE 97, CREATININE 1.34, GFR 55 , ALBUMIN 2.9. CARDIAC ENZYMES WITHIN NORMAL LIMITS. A BRAIN CT WAS OBTAINED AND REVEALED NO ACUTE INTRACRANIAL ABNORMALITY. CHEST XRAY REVEALED: Low lung volumes which accentuate the pulmonary markings but without acute cardiopulmonary process identified. EKG OBTAINED AND REVEALED: SINUS RHYTHM WITH HR 70. HE WAS GIVEN A NORMAL SALINE BOLUS IN THE ER AND ADMITTED TO THE HOSPITAL FOR FURTHER EVALUATION AND TREATMENT FOR HYPONATREMIA, ALTERED MENTAL STATUS, AND GENERALIZED WEAKNESS. HE WAS STARTED ON NORMAL SALINE AT 100ML/HR. WE PLAN TO FOLLOW UP WITH AM LABS AND CONTINUE TO MONITOR PATIENT. - Past Medical History Past Medical History: Hypertension, Dementia, COPD, GERD, Arthritis Additional Medical History: TIA, Cystitis - Past Surgical History Surgical History: Ortho Surgery - Family History Family Medical History: Cancer, Hypertension - Social History Does patient currently use any type of tobacco product: No Have you used tobacco products in the last 12 months: No Type of Tobacco Use: None Does any household member use tobacco: No Alcohol Use: None Drug Use: None - Medications Home Medications: No Known Drug Allergies Allergy (Verified 02/22/18 07:54) CONTINUE taking the following medications Unobtainable 03/04/18 [History] - Review of Systems Constitutional: Weakness, Other (DECREASED APPETITE) Eyes: No Symptoms Reported ENT: No Symptoms Reported Respiratory: No Symptoms Reported Cardiovascular: No Symptoms Reported, Light Headedness Gastrointestinal: No Symptoms Reported Genitourinary: No Symptoms Reported Musculoskeletal: No Symptoms Reported Skin: No Symptoms Reported Neurological: Weakness, Confusion - Physical Exam Vital Signs: Temperature 97.8 F Pulse Rate [Left] 69 Pulse Rate 78 Respiratory Rate 26 Blood Pressure [Right Arm] 137/77 Blood Pressure [Left Arm] 120/66 Blood Pressure 100/70 O2 Sat by Pulse Oximetry 100 Oriented: Not Oriented Eyes: Normal Ear: Normal Nose: Normal Throat: Normal Respiratory: Diminished Throughout Cardiovascular: Normal. negative: S3, S4, Murmur : Normal Auscultation: Bowel Sounds: Normal Palpation: Normal Tenderness: Normal Skin: Normal Musculoskeletal: Normal Psychiatric: Normal Mood Description: Calm Affect: Normal Speech Pattern: Clear - Assessment/Plan (1) Hyponatremia Status: Acute Plan: ADMIT, NORMAL SALINE AT 100ML/HR, CONTINUE TO MONITOR (2) Altered mental status Qualifiers: Altered mental status type: unspecified Qualified Code(s): R41.82 - Altered mental status, unspecified Status: Acute (3) Generalized weakness Status: Acute - Allergies Allergies/Adverse Reactions: Allergies Allergy/AdvReac Type Severity Reaction Status Date / Time No Known Drug Allergies Allergy Verified 02/22/18 07:54
[2018-03-05 12:35] LABS: CKMB % 3.2 % (<4); CREATINE KINASE 66 Units/L (39-308); CREATINE KINASE MB 2.1 ng/mL (0-4.0); TROPONIN I < 0.02 ng/mL (0-1.5)
[2018-03-06] MEDS: NS 1000 ML 1,000 ML IV SCH ×2 (00:04→06:34)
[2018-03-06 06:18] LABS: BASOPHILS # (AUTO) 0.1 X10^3/uL (0.0-0.1); BASOPHILS % (AUTO) 1.3 % (0.2-1.0); EOSINOPHILS # (AUTO) 0.3 x10^3/uL (0.0-0.2); EOSINOPHILS % (AUTO) 5.8 % (0.9-2.9); HEMATOCRIT 38.3 % (42.0-54.0); LYMPHOCYTES # (AUTO) 1.2 X10^3/uL (1.3-2.9); LYMPHOCYTES % (AUTO) 21.6 % (21.0-51.0); MEAN CORPUSCULAR HEMOGLOBIN 30.7 pg (27.0-34.0); MEAN CORPUSCULAR HGB CONC 33.8 g/dL (33.0-35.0); MEAN CORPUSCULAR VOLUME 90.8 fL (80.0-100.0); MEAN PLATELET VOLUME 7.2 fL (7.4-11.0); MONOCYTES # (AUTO) 0.5 x10^3/uL (0.3-0.8); MONOCYTES % (AUTO) 8.9 % (0.0-13.0); NEUTROPHILS # (AUTO) 3.5 x10^3/uL (2.2-4.8); NEUTROPHILS % (AUTO) 62.4 % (42.0-75.0); PLATELET COUNT 312 X10^3/uL (150.0-450.0); RED BLOOD COUNT 4.22 X10^6/uL (4.7-6.0); RED CELL DISTRIBUTION WIDTH 13.3 % (11.6-16.5); WHITE BLOOD COUNT 5.6 X10^3/uL (3.6-10.0)
[2018-03-06 06:50] LABS: ALANINE AMINOTRANSFERASE 31 Units/L (12-78); ALBUMIN 2.6 g/dL (3.4-5.0); ALKALINE PHOSPHATASE 45 Units/L (46-116); ASPARTATE AMINO TRANSFERASE 20 Units/L (15-37); BLOOD UREA NITROGEN 8 mg/dL (7-18); CALCIUM 8.4 mg/dL (8.5-10.1); CARBON DIOXIDE 25.1 mmol/L (21-32); CHLORIDE 104 mmol/L (98-107); COR CA(FOR HYPOALB) 9.5 mg/dL (8.5-10.1); CREATININE 0.91 mg/dL (0.70-1.30); SODIUM 137 mmol/L (136-145); TOTAL PROTEIN 6.4 g/dL (6.4-8.2); eGFR NON BLACK RACES > 60 (>60)
[2018-03-06 13:45] VITALS: BP 168/92
--- NOTE | 2018-03-18 16:47 | DR.CARTERD ---
- Discharge Summary for: Discharge Summary for Date of:: 03/06/18 - Admission Date Date of Admission: 03/04/18 - Admission Diagnoses Admission Diagnosis: (1) Hyponatremia (2) Altered mental status (3) Generalized weakness - Discharge Date Discharge Date: 03/06/18 - Discharge Diagnoses Discharge Diagnosis: (1) Hyponatremia (2) Altered mental status (3) Generalized weakness - Hospital Course Hospital Course: Day one, Mr. Frias presented to the emergency room with complaints of altered mental status and generalized weakness. Patient was discharged home from the hospital one week prior for treatment of COPD exacerbation. Family reported that patient had a decreased appetite and had complained of dizziness. Medical History: TIA, Dementia, Hypertension, Bronchitis, COPD, Emphysema, Gerd, Esophageal Disorder, UTI's, Cystitis, Muscle Weakness, Arthritis. Abnormal Labs : RBC 4.30, Hgb 13.0, Hct 39.0, Sodium 130, Chloride 97, Creatinine 1.34, GFR non 55, Albumin 2.9, A/G Ratio 0.8. Blood Cultures x2 obtained. Brain CT: No acute intracranial abnormality. Chest X-Ray: Low lung volumes which accentuate the pulmonary markings but without acute cardiopulmonary process identified. EKG : Sinus Rhythm, rate=70. He was given a normal saline bolus in the emergency room and admitted to the hospital for further evaluation and treatment for hyponatremia, altered mental status, and generalized weakness. He was started on normal saline at 100ml/hr. Day two, Patient continued treatment for hyponatremia, altered mental status, and generalized weakness. Patient continued with generalized weakness. He was noted with intermittent confusion. Sodium level improved to 134 with IV hydration. We continued with treatment and monitored. Day three, Patient was doing better upon rounds. He was alert and oriented. Sodium level had returned to normal. Vital signs stable. Labs wnl. Final blood cultures negative for growth. He reported that he was feeing better. We planned for discharge. Instructions for medications and follow up were discussed with patient and family, both voiced understanding. Patient discharged home in stable condition with family. - Discharge Medications Discharge Medications: Home Medication List albuterol sulfate 2 puff INHALATION BID PRN 03/05/18 [History] alprazolam 1 tab PO TID PRN 03/05/18 [History] amlodipine 1 tab PO DAILY 03/05/18 [History] clopidogrel 1 tab PO DAILY 03/05/18 [History] dicyclomine 1 tab PO QID PRN 03/05/18 [History] famciclovir 1 tab PO TID 03/05/18 [History] hydrocodone-acetaminophen 1 tab PO Q6HR PRN 03/05/18 [History] ipratropium-albuterol 1 vial INHALATION PRN PRN 03/05/18 [History] lisinopril 1 tab PO DAILY 03/05/18 [History] olanzapine 1 tab PO DAILY 03/05/18 [History] pantoprazole 1 tab PO DAILY 03/05/18 [History] tiotropium bromide 2 inh INHALATION BID PRN 03/05/18 [History] bisoprolol fumarate 5 mg PO DAILY #3 tab 03/06/18 [Rx] fluoxetine [Prozac] 10 mg PO QAM #30 cap 03/06/18 [Rx] Prescriptions: bisoprolol fumarate Manuel Cleary fluoxetine [Prozac] Manuel Cleary - Discharge Disposition Discharge Disposition: Patient is to follow up in our office in one week.
== END 2018-03-06 14:10 | disposition home health service (06) ==
LOC: ER 18:01 → ICU 18:01
PROVIDERS: ADMIT Internal Medicine; ATTEND Internal Medicine
DX: R53.1 Weakness; M13.88 Other specified arthritis, other site; R41.82 Altered mental status, unspecified; J44.9 Chronic obstructive pulmonary disease, unspecified; R42 Dizziness and giddiness; R26.89 Other abnormalities of gait and mobility; K21.9 Gastro-esophageal reflux disease without esophagitis; I10 Essential (primary) hypertension; R55 Syncope and collapse; R94.31 Abnormal electrocardiogram [ECG] [EKG]; R06.02 Shortness of breath; R94.4 Abnormal results of kidney function studies; E87.1 Hypo-osmolality and hyponatremia; Z79.899 Other long term (current) drug therapy; Z79.01 Long term (current) use of anticoagulants
CPT/HCPCS: 36415; 70450; 71010; 71045; 80053; 80061; 82550; 82553; 83605; 83735; 84153; 84484; 85025; 85610; 85730; 87040; 93005; 96365; 97110; 97163; 97166; 97535; 99284; A4222; G0378; J7030

== ENCOUNTER 2018-03-28 00:37 | Observation (INO) ==
[2018-03-28] MEDS ORDERED: NS 1000 ML 1,000 ML ONE (00:48)
[2018-03-28] MEDS ORDERED: NS 1000 ML 1,000 ML IV ONE (00:51)
[2018-03-28] MEDS ORDERED: DUONEB 0.5 MG/3 MG NEB ONE (01:29)
[2018-03-28] MEDS ORDERED: SOLU-Medrol 125 MG VIAL IVP ONE (01:29)
[2018-03-28] MEDS ORDERED: SOLU-Medrol 125 MG VIAL ONE (01:34)
--- NOTE | 2018-03-28 01:35 | DR.SOBA ---
HPI - Time Seen Time seen: 01:30 - Primary Care Physician Primary Care Physician: BEBETO - Complaints Chief Complaint Doctors Comments: Son states the patient's oxygen level was dropping low at home this evening with the oxygen level around 88 and he put a family's member oxygen on him and it came up to 93 on four liters but it dropped when he turned his oxygen down. States visiting nurse visted him today and said his oxygen was low so he was checking it with a home oxometer moniter. He does not have any oxygen at home. He denies chest pain but has had wheezing and SOB with selling of his feet and legs. States he has had an albuterol treatment at home and two other treatments. He is on medicine daily for wheezing. He stopped smoking 6-7 years ago. He has a cough that is non productive and he denies fever or chills. States he is a patient of Dr. Cleary and his last breathing treatment was 7 hours ago. Chief Complaint:: DECREASED 02 SAT - Reviewed Nurses Notes Reviewed: Yes - Source History Provided: Patient - Mode of Arrival Mode of Arrival: Wheelchair - Timing Onset of Chief Complaint: 03/28/18 - Duration Duration: Hours - Context Onset:: At Rest PE Risk Factors:: None History of:: COPD Currently on:: Inhaled Bronchodilators Prehospital Care:: Inhaled B2 - Modifying Factors Worsens:: Exertion Improves:: Nothing - Associated Signs and Symptoms Associated Signs and Symptoms: Wheeze, Cough. denies: None, Fever, Nasal Congestion, Sore Throat, Hemoptysis, Chest Pain, Leg Swelling, Calf Pain, Anxiety, Numbness, Perioral Numbness, Hands Numbness, Feet Numbness PMH - PMH Past Medical History: Yes Past Medical History: Hypertension, Dementia, COPD, GERD, Arthritis Past Surgical History: Yes Surgical History: Ortho Surgery - Family History History of Family Medical Conditions: Yes Family Medical History: Cancer, Hypertension - Social History Does patient currently use any type of tobacco product: Yes Have you used tobacco products in the last 12 months: Yes Type of Tobacco Use: Smokeless Does any household member use tobacco: No Alcohol Use: None Do you use any recreational Drugs:: No Lives With: Family Lives Where: Home - infectious screening In the last 2 months have you had wt loss of >10#?: NO Have you had fever, night sweats or hemotysis?: No Have you traveled outside the country in the last 6 months?: No Isolation: Standard ROS - Review of Systems Constitutional: No Symptoms Reported. negative: See HPI, Chills, Diaphoresis, Fever, Malaise, Weakness, Irritable, Fatigue, Loss of Appetite, Other Eyes: No Symptoms Reported ENTM: No Symptoms Reported Respiratoy: No Symptoms Reported, Non-Productive Cough, Short of Breath, Wheezing Cardiovascular: No Symptoms Reported, Edema. negative: See HPI, Chest Pain, Palpitations, Syncope, Cyanosis, Skin Mottling, Other Gastrointestinal/Abdominal: No Symptoms Reported. negative: See HPI, Abdominal Pain, Constipation, Diarrhea, Nausea, Vomiting, Food Intolerance, Other Genitourinary: No Symptoms Reported. negative: See HPI, Discharge, Dysuria, Frequency, Hematuria, Pain, Bleeding, Other Neurological: No Symptoms Reported. negative: See HPI, Anxiety, Depressed, Emotional Problems, Headache, Numbness, Paresthesia, Pre-existing Deficit, Seizure, Tingling, Tremors, Weakness, Dizziness, Problems Walking, Speech Problem, Other Musculoskeletal: No Symptoms Reported Integumentary: No Symptoms Reported. negative: See HPI, Change in Color, Change in Hair/Nails, Dryness, Lesions, Lumps, Rash, Itching, Wound, Bruises, Juandice, Other Hematologic/Lymphatic: No Symptoms Reported. negative: See HPI, Anemia, Blood Clots, Easy Bleeding, Easy Bruising, Swollen Glands, Lymphadenopathy, Other Endocrine: No Symptoms Reported Psychiatric: No Symptoms Reported PE - General Limitations: No Limitations General Appearance: Alert, In Distress (moderate) - Head Head Exam: Normal Inspection, Atraumatic, Normocephalic - Eyes Eye exam: Normal Appearance, PERRL, EOMI. negative: Scleral Icterus, Conjunctival Injection, Nystagmus, Miosis, Mydrasis, Periorbital Swelling, Periorbital Tenderness, Other - ENT ENT Exam: Normal Exam, Normal Oropharynx, Normal External Ear Exam, Mucous Membranes Moist, TM's Normal Bilaterally - Neck Neck Exam: Normal Inspection, Full ROM, Trachea Midline - Chest Chest Inspection: Normal Inspection, Symmetric Chest Wall Rise - Respiratory Respiratory Exam: Normal Lung Sounds Bilat, Prolonged Expiratory Phase Respiratory Exam: Bilateral Wheezing, Bilateral Decreased Breath Sounds, Right Rales - Cardiovascular Cardiovascular Exam: Regular Rate, Normal Rhythm, Normal Heart Sounds, Systolic Murmur - Abdominal Exam Abdominal Exam: Normal Inspection, Normal Bowel Sounds, Soft Abdominal Tenderness: negative: RUQ, RLQ, LUQ, LLQ, Epigastrium, Suprapubic, Diffuse, Mild, Moderate, Severe, Other - Extremities Extremities Exam: Normal Inspection, Full ROM, Normal Capillary Refill, Edema. negative: Tenderness, Joint Swelling, Calf Tenderness, Other - Back Back Exam: Normal Inspection, Full ROM. negative: Tenderness, (R) CVA Tenderness, (L) CVA Tenderness, Muscle Spasm, Paraspinal Tenderness, Vertebral Tenderness, Rashes, (R) Sciatic Notch Tenderness, (L) Sciatic Notch Tendern, (R ) Straight Leg Raise, (L) Straight Leg Raise, Other - Neurologic Neurological Exam: Alert, Oriented X3, CN II-XII Intact, Reflexes Normal. negative: Normal Gait (gait not tested) - Psychiatric Psychiatric Exam: Normal Affect, Normal Mood - Skin Skin Exam: Warm, Dry, Intact, Normal Color - Vital Signs Vitals: Temperature 97.9 F Pulse Rate [Left] 93 Pulse Rate 95 Respiratory Rate 24 Blood Pressure [Right Arm] 168/92 Blood Pressure [Left Arm] 115/75 Blood Pressure 87/63 O2 Sat by Pulse Oximetry 94 Course - Consultation Called: 04:07 Call Returned: 04:07 (Dr. Cleary to admit) - Education/Counseling Education/Counseling: Patient, Family Educated On: Treatment, Diagnosis, Needs for Follow Up ROR - Labs Reviewed Laboratory Results Reviewed?: Yes (All labs and x-ray results reviewed and discussed with patient) Result Diagrams: 03/28/18 02:00 03/28/18 02:05 - XRAY XRAY Interpreted by: Radiologist (CXR: Negative exam for active pathology) XRAY Findings: CTA Chest: Negative exam for pulmonary artery embolus aortic aneurysm or di - Labs Reviewed Laboratory: WBC 6.2 X10^3/uL (3.6-10.0) 03/28/18 02:00 RBC 4.00 X10^6/uL (4.7-6.0) L 03/28/18 02:00 Hgb 12.3 g/dL (13.5-18.0) L 03/28/18 02:00 Hct 36.3 % (42.0-54.0) L 03/28/18 02:00 MCV 90.7 fL (80.0-100.0) 03/28/18 02:00 MCH 30.8 pg (27.0-34.0) 03/28/18 02:00 MCHC 33.9 g/dL (33.0-35.0) 03/28/18 02:00 RDW 13.2 % (11.6-16.5) 03/28/18 02:00 Plt Count 257 X10^3/uL (150.0-450.0) 03/28/18 02:00 MPV 8.1 fL (7.4-11.0) 03/28/18 02:00 Neut % (Auto) 58.3 % (42.0-75.0) 03/28/18 02:00 Lymph % (Auto) 23.4 % (21.0-51.0) 03/28/18 02:00 Page % (Auto) 11.3 % (0.0-13.0) 03/28/18 02:00 Eos % (Auto) 5.7 % (0.9-2.9) H 03/28/18 02:00 Baso % (Auto) 1.3 % (0.2-1.0) H 03/28/18 02:00 Neut # (Auto) 3.6 x10^3/uL (2.2-4.8) 03/28/18 02:00 Lymph # (Auto) 1.4 X10^3/uL (1.3-2.9) 03/28/18 02:00 Page # (Auto) 0.7 x10^3/uL (0.3-0.8) 03/28/18 02:00 Eos # (Auto) 0.4 x10^3/uL (0.0-0.2) H 03/28/18 02:00 Baso # (Auto) 0.1 X10^3/uL (0.0-0.1) 03/28/18 02:00 Absolute Nucleated RBC 0.1 /100WBC 03/28/18 02:00 INR Target Range - 03/28/18 02:00 INR 1.07 (0.8-1.3) 03/28/18 02:00 APTT 31.4 SECONDS (22.9-36.5) 03/28/18 02:00 PTT Comment - 03/28/18 02:00 D-Dimer 4420 ng/mL (0-400) H* 03/28/18 02:05 Sodium 136 mmol/L (136-145) 03/28/18 02:05 Corrected Sodium 136 mmol/L (136-145) 03/28/18 02:05 Potassium 4.3 mmol/L (3.5-5.1) 03/28/18 02:05 Chloride 103 mmol/L (98-107) 03/28/18 02:05 Carbon Dioxide 25.1 mmol/L (21-32) 03/28/18 02:05 BUN 11 mg/dL (7-18) 03/28/18 02:05 Creatinine 1.33 mg/dL (0.70-1.30) H 03/28/18 02:05 Est GFR (MDRD) Af Amer > 60 (>60) 03/28/18 02:05 Est GFR (MDRD) Non-Af 55 (>60) L 03/28/18 02:05 Glucose 112 mg/dL (65-99) H 03/28/18 02:05 Calcium 7.9 mg/dL (8.5-10.1) L 03/28/18 02:05 Corrected Calcium 8.9 mg/dL (8.5-10.1) 03/28/18 02:05 Magnesium 1.8 mg/dL (1.7-2.9) 03/28/18 02:05 Total Bilirubin 0.30 mg/dL (0.2-1.0) 03/28/18 02:05 AST 15 Units/L (15-37) 03/28/18 02:05 ALT 16 Units/L (12-78) 03/28/18 02:05 Alkaline Phosphatase 52 Units/L (46-116) 03/28/18 02:05 Creatine Kinase 56 Units/L (39-308) 03/28/18 02:05 CK-MB (CK-2) 2.1 ng/mL (0-4.0) 03/28/18 02:05 CK/CKMB % Calc 3.8 % (<4) 03/28/18 02:05 Troponin I 0.16 ng/mL (0-1.5) 03/28/18 02:05 B-Natriuretic Peptide 161 pg/mL (0-79) H 03/28/18 02:05 Total Protein 6.5 g/dL (6.4-8.2) 03/28/18 02:05 Albumin 2.8 g/dL (3.4-5.0) L 03/28/18 02:05 Globulin 3.7 g/dL (2.5-4.5) 03/28/18 02:05 Albumin/Globulin Ratio 0.8 Ratio (1.1-2.1) L 03/28/18 02:05 - Diagnosis Discharge Problem: COPD exacerbation, Bronchitis, Hypoxemia Dyspnea Qualifiers: Dyspnea type: shortness of breath Qualified Code(s): R06.02 - Shortness of breath; R06.00 - Dyspnea, unspecified; R06.01 - Orthopnea - Discharge Plan Disposition: ADMITTED INPATIENT Condition: Stable - Follow ups/Referrals Follow ups/Referrals: Manuel Cleary [Primary Care Provider] - 3 days - Instructions
[2018-03-28] MEDS ORDERED: DUONEB 0.5 MG/3 MG ONE (01:39)
[2018-03-28 02:20] LABS: BASOPHILS # (AUTO) 0.1 X10^3/uL (0.0-0.1); BASOPHILS % (AUTO) 1.3 % (0.2-1.0); EOSINOPHILS # (AUTO) 0.4 x10^3/uL (0.0-0.2); EOSINOPHILS % (AUTO) 5.7 % (0.9-2.9); HEMATOCRIT 36.3 % (42.0-54.0); HEMOGLOBIN 12.3 g/dL (13.5-18.0); LYMPHOCYTES # (AUTO) 1.4 X10^3/uL (1.3-2.9); LYMPHOCYTES % (AUTO) 23.4 % (21.0-51.0); MEAN CORPUSCULAR HEMOGLOBIN 30.8 pg (27.0-34.0); MEAN CORPUSCULAR HGB CONC 33.9 g/dL (33.0-35.0); MEAN CORPUSCULAR VOLUME 90.7 fL (80.0-100.0); MEAN PLATELET VOLUME 8.1 fL (7.4-11.0); MONOCYTES # (AUTO) 0.7 x10^3/uL (0.3-0.8); MONOCYTES % (AUTO) 11.3 % (0.0-13.0); NEUTROPHILS # (AUTO) 3.6 x10^3/uL (2.2-4.8); NEUTROPHILS % (AUTO) 58.3 % (42.0-75.0); PLATELET COUNT 257 X10^3/uL (150.0-450.0); RED CELL DISTRIBUTION WIDTH 13.2 % (11.6-16.5); WHITE BLOOD COUNT 6.2 X10^3/uL (3.6-10.0)
[2018-03-28 02:32] LABS: BLOOD UREA NITROGEN 11 mg/dL (7-18); CALCIUM 7.9 mg/dL (8.5-10.1); CARBON DIOXIDE 25.1 mmol/L (21-32); CHLORIDE 103 mmol/L (98-107); COR NA(FOR HYPERGLY) 136 mmol/L (136-145); CREATININE 1.33 mg/dL (0.70-1.30); SODIUM 136 mmol/L (136-145); TROPONIN I 0.16 ng/mL (0-1.5); eGFR NON BLACK RACES 55 (>60)
[2018-03-28 02:33] LABS: B-TYPE NATRIURETIC PEPTIDE 161 pg/mL (0-79)
[2018-03-28 02:36] LABS: ALANINE AMINOTRANSFERASE 16 Units/L (12-78); ALBUMIN 2.8 g/dL (3.4-5.0); ALKALINE PHOSPHATASE 52 Units/L (46-116); ASPARTATE AMINO TRANSFERASE 15 Units/L (15-37); CKMB % 3.8 % (<4); COR CA(FOR HYPOALB) 8.9 mg/dL (8.5-10.1); CREATINE KINASE 56 Units/L (39-308); CREATINE KINASE MB 2.1 ng/mL (0-4.0); MAGNESIUM 1.8 mg/dL (1.7-2.9); TOTAL PROTEIN 6.5 g/dL (6.4-8.2)
[2018-03-28] MEDS ORDERED: NS 100 ML IV 100 ML IV ONE (02:55)
--- NOTE | 2018-03-28 03:48 | CT ---
CT angiography chest Indication: Chest pain, shortness of breath Technique: The patient received intravenous contrast. Multiplanar 3D, and MIP images are reviewed Findings: The aortic arch shows scattered atherosclerosis. The mediastinum is negative for adenopathy or focal pathology. The pulmonary arteries opacify normally. There is mild central bronchial dilatio n and minimal fiber linear scarring. Changes of mild COPD are present. There are degenerative changes of the skeleton. There is no aneurysm. Impression: 1. Negative exam for pulmonary artery embolus aortic aneurysm or dissection. 2. Changes o f COPD. Reported By:
[2018-03-28] MEDS: NS 1000 ML 1,000 ML IV SCH (05:22)
[2018-03-28 06:11] LABS: BASOPHILS % (AUTO) 0.4 % (0.2-1.0); EOSINOPHILS # (AUTO) 0.1 x10^3/uL (0.0-0.2); EOSINOPHILS % (AUTO) 1.1 % (0.9-2.9); HEMATOCRIT 41.7 % (42.0-54.0); HEMOGLOBIN 14.1 g/dL (13.5-18.0); LYMPHOCYTES # (AUTO) 0.6 X10^3/uL (1.3-2.9); LYMPHOCYTES % (AUTO) 10.5 % (21.0-51.0); MEAN CORPUSCULAR HEMOGLOBIN 30.6 pg (27.0-34.0); MEAN CORPUSCULAR HGB CONC 33.9 g/dL (33.0-35.0); MEAN CORPUSCULAR VOLUME 90.4 fL (80.0-100.0); MEAN PLATELET VOLUME 8.3 fL (7.4-11.0); MONOCYTES # (AUTO) 0.1 x10^3/uL (0.3-0.8); MONOCYTES % (AUTO) 1.9 % (0.0-13.0); NEUTROPHILS # (AUTO) 5.1 x10^3/uL (2.2-4.8); NEUTROPHILS % (AUTO) 86.1 % (42.0-75.0); PLATELET COUNT 275 X10^3/uL (150.0-450.0); RED BLOOD COUNT 4.61 X10^6/uL (4.7-6.0); RED CELL DISTRIBUTION WIDTH 13.3 % (11.6-16.5); WHITE BLOOD COUNT 5.9 X10^3/uL (3.6-10.0)
[2018-03-28 06:13] VITALS: BMI 25.3
[2018-03-28] MEDS: DUONEB 0.5 MG/3 MG NEB SCH ×6 (06:15→20:25)
[2018-03-28] MEDS: ZIAC 5/6.25 MG PO SCH (06:20)
[2018-03-28] MEDS: ASPIRIN EC 81 MG PO SCH (06:20)
[2018-03-28 06:24] LABS: BLOOD UREA NITROGEN 11 mg/dL (7-18); CALCIUM 8.4 mg/dL (8.5-10.1); CARBON DIOXIDE 24.2 mmol/L (21-32); CHLORIDE 103 mmol/L (98-107); COR NA(FOR HYPERGLY) 138 mmol/L (136-145); CREATININE 1.34 mg/dL (0.70-1.30); SODIUM 137 mmol/L (136-145); eGFR NON BLACK RACES 55 (>60)
[2018-03-28] MEDS ORDERED: ZESTRIL TAB 20 MG ONE (09:00)
[2018-03-28] MEDS: LEVAQUIN PREMIX IV 500 MG 500 MG/100 ML BAG IV SCH (09:29)
[2018-03-28] MEDS: PLAVIX PO SCH (09:32)
[2018-03-28] MEDS: ZESTRIL TAB 20 MG PO SCH (09:32)
[2018-03-28] MEDS: NORVASC TAB 5 MG PO SCH (09:32)
[2018-03-28] MEDS: PROTONIX TAB 40 MG PO SCH (09:33)
--- NOTE | 2018-03-28 09:34 | DR.H&P ---
H&P - History & Physical for Day of: H&P Date: 03/28/18 - Chief Complaint Chief Complaint: SHORT OF BREATH - History of Present Illness History of Present Illness: IS A 78 YEAR OLD PATIENT OF OURS WHO PRESENTED TO THE EMERGENCY ROOM WITH COMPLAINTS OF SHORTNESS OF BREATH AND DECREASED OXYGEN SATURATIONS. PATIENTS SON REPORTS THAT HIS OXYGEN SATURATIONS FELL TO AROUND 88% YESTERDAY EVENING, BUT CAME UP TO 93% ON 4 LITERS. FAMILY REPORTS THAT PATIENT DOES NOT HAVE OXYGEN AT HOME, BUT THEY USED A NEIGHBORS OXYGEN. HE REPORTS THAT IT FELL AGAIN AFTER DECREASING THE OXYGEN. PATIENT DENIES CHEST PAIN. ASSOCIATED SYMPTOMS INCLUDE BILATERAL LOWER EXTREMITY SWELLING, COUGH, AND WHEEZING. ON ARRIVAL, VITALS WERE 97.9-106-24-94%NC-87/63. LABS WERE OBTAINED. ABNORMAL LAB VALUES INCLUDE THE FOLLOWING: RBC 4.00, HGB 12.3, HCT 36.3, D-DIMER 4420, CREATININE 1.33, GLUCOSE 112, CALCIUM 7.9, BNP 161 , ALBUMIN 2.8. BLOOD CULTURES ARE PENDING. A CHEST CTA WAS OBTAINED AND REVEALED : Negative exam for pulmonary artery embolus aortic aneurysm or dissection. Changes of COPD. EKG REVEALED: SINUS RHYTHM WITH HR 93. HE WAS GIVEN SOLU- MEDROL 125MG IV X 1 DOSE, DUONEB X 1, AND A NORMAL SALINE BOLUS. HE WAS ADMITTED FOR FURTHER EVALUATION AND TREATMENT OF COPD EXACERBATION AND ACUTE BRONCHITIS. HE WAS STARTED ON LEVAQIN 500MG IV DAILY, DUONEBS Q4H, SUPPLEMENTAL OXGYEN, AD SOLU-MEDROL 80MG IV Q8H. WE PLAN TO FOLLOW UP WITH AM LABS AND CHEST XRAY AND CONTINUE TO MONITOR PATIENT. - Past Medical History Past Medical History: Hypertension, Dementia, COPD, GERD, Arthritis Additional Medical History: TIA, Cystitis - Past Surgical History Surgical History: Ortho Surgery - Family History Family Medical History: Cancer, Hypertension - Social History Does patient currently use any type of tobacco product: No Have you used tobacco products in the last 12 months: No Type of Tobacco Use: None Does any household member use tobacco: No Alcohol Use: None Drug Use: None - Medications Home Medications: No Known Drug Allergies Allergy (Verified 02/22/18 07:54) CONTINUE taking the following medications aspirin [Aspirin Low Dose] 81 mg PO QDAY 03/28/18 [History] bisoprolol-hydrochlorothiazide 1 tab PO QDAY 03/28/18 [History] ciprofloxacin HCl [Cipro] 500 mg PO BID 03/28/18 [History] - Review of Systems Constitutional: Weakness Eyes: No Symptoms Reported ENT: No Symptoms Reported Respiratory: Cough, Shortness of Breath, SOB with Excertion, Wheezing Cardiovascular: Edema (LOWER EXTREMITY EDEMA) Gastrointestinal: No Symptoms Reported Genitourinary: No Symptoms Reported Musculoskeletal: No Symptoms Reported Skin: No Symptoms Reported Neurological: Weakness - Physical Exam Vital Signs: Temperature 97.5 F Pulse Rate [Left] 101 Pulse Rate 88 Respiratory Rate 20 Blood Pressure [Right Arm] 116/84 Blood Pressure [Left Arm] 119/77 Blood Pressure 87/63 O2 Sat by Pulse Oximetry 93 Oriented: Normal Eyes: Normal Ear: Normal Nose: Normal Respiratory: Wheezes Throughout Cardiovascular: Tachycardia. negative: S3, S4, Murmur : Normal Auscultation: Bowel Sounds: Normal Palpation: Normal Tenderness: Normal Skin: Normal Musculoskeletal: Normal Psychiatric: Normal Mood Description: Calm Affect: Normal Speech Pattern: Clear - Assessment/Plan (1) COPD exacerbation Status: Acute Plan: ADMIT, IV ANTIBIOTICS, RESPIRATORY TREATMENTS, SUPPLEMENTAL OXYGEN, SOLU- MEDROL, CONTINUE TO MONITOR (2) Bronchitis Status: Acute - Allergies Allergies/Adverse Reactions: Allergies Allergy/AdvReac Type Severity Reaction Status Date / Time No Known Drug Allergies Allergy Verified 02/22/18 07:54
[2018-03-28] MEDS ORDERED: SALINE 3% 15 ML NEB TX NEB ONE (12:45)
[2018-03-28] MEDS ORDERED: SALINE 3% 15 ML NEB TX ONE (12:46)
[2018-03-29] MEDS: DUONEB 0.5 MG/3 MG NEB SCH ×6 (01:37→20:37)
[2018-03-29 05:22] LABS: BASOPHILS % (AUTO) 0.4 % (0.2-1.0); EOSINOPHILS % (AUTO) 0.2 % (0.9-2.9); HEMATOCRIT 35.7 % (42.0-54.0); HEMOGLOBIN 12.4 g/dL (13.5-18.0); LYMPHOCYTES # (AUTO) 1.1 X10^3/uL (1.3-2.9); LYMPHOCYTES % (AUTO) 10.4 % (21.0-51.0); MEAN CORPUSCULAR HEMOGLOBIN 30.9 pg (27.0-34.0); MEAN CORPUSCULAR HGB CONC 34.8 g/dL (33.0-35.0); MEAN CORPUSCULAR VOLUME 88.6 fL (80.0-100.0); MEAN PLATELET VOLUME 8.3 fL (7.4-11.0); MONOCYTES # (AUTO) 0.7 x10^3/uL (0.3-0.8); PLATELET COUNT 264 X10^3/uL (150.0-450.0); RED BLOOD COUNT 4.03 X10^6/uL (4.7-6.0); RED CELL DISTRIBUTION WIDTH 13.2 % (11.6-16.5); WHITE BLOOD COUNT 10.8 X10^3/uL (3.6-10.0)
[2018-03-29] MEDS: NS 1000 ML 1,000 ML IV SCH (05:31)
[2018-03-29 05:32] LABS: ALANINE AMINOTRANSFERASE 16 Units/L (12-78); ALBUMIN 2.7 g/dL (3.4-5.0); ALKALINE PHOSPHATASE 48 Units/L (46-116); ASPARTATE AMINO TRANSFERASE 15 Units/L (15-37); BLOOD UREA NITROGEN 13 mg/dL (7-18); CALCIUM 8.1 mg/dL (8.5-10.1); CARBON DIOXIDE 24.7 mmol/L (21-32); CHLORIDE 106 mmol/L (98-107); COR CA(FOR HYPOALB) 9.1 mg/dL (8.5-10.1); COR NA(FOR HYPERGLY) 139 mmol/L (136-145); CREATININE 1.19 mg/dL (0.70-1.30); SODIUM 138 mmol/L (136-145); TOTAL PROTEIN 6.3 g/dL (6.4-8.2); eGFR NON BLACK RACES > 60 (>60)
--- NOTE | 2018-03-29 06:28 | RAD ---
Chest one view Indication: Shortness of breath Comparison March 28, 2018 Findings: The configuration of the heart and mediastinum remain stable. There is no focal infiltrate, effusion, or pneumothorax. The skeleton is negative. Impression: 1. Negative exam for active pathology. Reported By:
[2018-03-29] MEDS: LEVAQUIN PREMIX IV 500 MG 500 MG/100 ML BAG IV SCH (08:51)
[2018-03-29] MEDS: NORVASC TAB 5 MG PO SCH (08:51)
[2018-03-29] MEDS: PROTONIX TAB 40 MG PO SCH (08:51)
[2018-03-29] MEDS: ASPIRIN EC 81 MG PO SCH (08:51)
[2018-03-29] MEDS: ZESTRIL TAB 20 MG PO SCH (08:52)
[2018-03-29] MEDS: ZIAC 5/6.25 MG PO SCH (08:52)
[2018-03-29] MEDS: SOLU-Medrol 40 MG VIAL IVP SCH ×2 (09:05→18:31)
[2018-03-29] MEDS: PLAVIX PO SCH (09:19)
--- NOTE | 2018-03-29 15:28 | PCM.PROG ---
Progress Note - Progress Note for Day of Date of Exam: 03/29/18 - Subjective Subjective: WAS ADMITTED FOR TREATMENT OF COPD EXACERBATION, ACUTE BRONCHITIS, AND HYPOXIA. TODAY, SHE IS ALERT AND ORIENTED, LYING IN BED ON MORNING ROUNDS. TODAY, HE CONTINUES WITH COMPLAINTS OF SHORTNESS OF BREATH AND COUGH. ON EXAMINATION, HEART IS REGULAR IN RATE AND RHYTHM. BILATERAL LUNGS ARE NOTED WITH SCATTERED WHEEZING THROUGHOUT. ABDOMEN IS ROUND, SOFT, AND NON- TENDER WITH NORMAL BOWEL SOUNDS NOTED IN ALL QUADRANTS. HIS VITALS TODAY ARE 97.7-103-18-94%-99/78. LABS WERE OBTAINED. ABNORMAL LAB VALUES INCLUDE THE FOLLOWING: WBC 10.8, RBC 4.03, HGB 12.4, HCT 35.7, GLUCOSE 122, CALCIUM 8.1, TOTAL PROTEIN 6.3, ALBUMIN 2.7. BLOOD CULTURES ARE PENDING. STAFF REPORTS THAT PATIENTS OXYGEN SATURATIONS FALL DROP INTO THE 80S WHEN PATIENT IS AMBULATING ON ROOM AIR. WE WILL EVALUATE PATIENT FOR OXYGEN THERAPY AT HOME. WE WILL OBTAIN AN ABG ON ROOM AIR TODAY. OTHERWISE, WE WILL CONTINUE WITH IV ANTIBIOTICS , RESPIRATORY TREATMENTS, AND CURRENT PLAN OF CARE. WE PLAN TO FOLLOW UP WITH AM LABS AND CONTINUE TO MONITOR PATIENT. - Past Medical Family Social History Past Med/Fam/Surg Hx: No changes since H&P Allergies: Allergies No Known Drug Allergies Allergy (Verified 02/22/18 07:54) - Review of Systems ROS: No change since H&P - Vital Signs and I&O's Vital Signs: Temperature 97.7 F Pulse Rate [Left] 103 Pulse Rate 90 Respiratory Rate 18 Blood Pressure [Right Arm] 99/78 Blood Pressure [Left Arm] 119/77 Blood Pressure 87/63 O2 Sat by Pulse Oximetry 98 Intake and Output: Intake & Output 03/27/18 03/28/18 03/29/18 03/30/18 11:59 11:59 11:59 11:59 Intake Total 1000 / 1000 1894 Output Total 550 / 550 Balance 450 / 450 1894 - Physical Exam Oriented: Normal Eyes: Normal Ear: Normal Nose: Normal Respiratory: Generalized, Wheezes Cardiovascular: Normal. negative: S3, S4, Murmur : Normal Auscultation: Bowel Sounds: Normal Palpation: Normal Tenderness: Normal Skin: Normal Musculoskeletal: Normal Psychiatric: Normal Mood Description: Calm Affect: Normal Speech Pattern: Clear, Appropriate - Laboratory and Diagnostics Result Diagrams: 03/29/18 04:11 03/29/18 04:11 Labs: Laboratory WBC 10.8 X10^3/uL (3.6-10.0) H 03/29/18 04:11 RBC 4.03 X10^6/uL (4.7-6.0) L 03/29/18 04:11 Hgb 12.4 g/dL (13.5-18.0) L 03/29/18 04:11 Hct 35.7 % (42.0-54.0) L 03/29/18 04:11 MCV 88.6 fL (80.0-100.0) 03/29/18 04:11 MCH 30.9 pg (27.0-34.0) 03/29/18 04:11 MCHC 34.8 g/dL (33.0-35.0) 03/29/18 04:11 RDW 13.2 % (11.6-16.5) 03/29/18 04:11 Plt Count 264 X10^3/uL (150.0-450.0) 03/29/18 04:11 MPV 8.3 fL (7.4-11.0) 03/29/18 04:11 Neut % (Auto) 83.0 % (42.0-75.0) H 03/29/18 04:11 Lymph % (Auto) 10.4 % (21.0-51.0) L 03/29/18 04:11 Ocean % (Auto) 6.0 % (0.0-13.0) 03/29/18 04:11 Eos % (Auto) 0.2 % (0.9-2.9) L 03/29/18 04:11 Baso % (Auto) 0.4 % (0.2-1.0) 03/29/18 04:11 Neut # (Auto) 9.0 x10^3/uL (2.2-4.8) H 03/29/18 04:11 Lymph # (Auto) 1.1 X10^3/uL (1.3-2.9) L 03/29/18 04:11 Ocean # (Auto) 0.7 x10^3/uL (0.3-0.8) 03/29/18 04:11 Eos # (Auto) 0.0 x10^3/uL (0.0-0.2) 03/29/18 04:11 Baso # (Auto) 0.0 X10^3/uL (0.0-0.1) 03/29/18 04:11 Absolute Nucleated RBC 0.0 /100WBC 03/29/18 04:11 INR Target Range - 03/28/18 02:00 INR 1.07 (0.8-1.3) 03/28/18 02:00 APTT 31.4 SECONDS (22.9-36.5) 03/28/18 02:00 PTT Comment - 03/28/18 02:00 D-Dimer 4420 ng/mL (0-400) H* 03/28/18 02:05 Sodium 138 mmol/L (136-145) 03/29/18 04:11 Corrected Sodium 139 mmol/L (136-145) 03/29/18 04:11 Potassium 3.9 mmol/L (3.5-5.1) 03/29/18 04:11 Chloride 106 mmol/L (98-107) 03/29/18 04:11 Carbon Dioxide 24.7 mmol/L (21-32) 03/29/18 04:11 BUN 13 mg/dL (7-18) 03/29/18 04:11 Creatinine 1.19 mg/dL (0.70-1.30) 03/29/18 04:11 Est GFR (MDRD) Af Amer > 60 (>60) 03/29/18 04:11 Est GFR (MDRD) Non-Af > 60 (>60) 03/29/18 04:11 Glucose 122 mg/dL (65-99) H 03/29/18 04:11 Calcium 8.1 mg/dL (8.5-10.1) L 03/29/18 04:11 Corrected Calcium 9.1 mg/dL (8.5-10.1) 03/29/18 04:11 Magnesium 1.8 mg/dL (1.7-2.9) 03/28/18 02:05 Total Bilirubin 0.30 mg/dL (0.2-1.0) 03/29/18 04:11 AST 15 Units/L (15-37) 03/29/18 04:11 ALT 16 Units/L (12-78) 03/29/18 04:11 Alkaline Phosphatase 48 Units/L (46-116) 03/29/18 04:11 Creatine Kinase 56 Units/L (39-308) 03/28/18 02:05 CK-MB (CK-2) 2.1 ng/mL (0-4.0) 03/28/18 02:05 CK/CKMB % Calc 3.8 % (<4) 03/28/18 02:05 Troponin I 0.16 ng/mL (0-1.5) 03/28/18 02:05 B-Natriuretic Peptide 161 pg/mL (0-79) H 03/28/18 02:05 Total Protein 6.3 g/dL (6.4-8.2) L 03/29/18 04:11 Albumin 2.7 g/dL (3.4-5.0) L 03/29/18 04:11 Globulin 3.6 g/dL (2.5-4.5) 03/29/18 04:11 Albumin/Globulin Ratio 0.8 Ratio (1.1-2.1) L 03/29/18 04:11 - Plan (1) COPD exacerbation Status: Acute Plan: ADMIT, IV ANTIBIOTICS, RESPIRATORY TREATMENTS, SUPPLEMENTAL OXYGEN, SOLU- MEDROL, CONTINUE TO MONITOR (2) Bronchitis Status: Acute Plan: CONTINUE IV ANTIBIOTICS, RESPIRATORY TREATMENTS, SUPPLEMENTAL OXYGEN, CONTINUE TO MONITOR
[2018-03-29 15:36] LABS: ABG ALLEN TEST POS; ABG BASE EXCESS -1.9 mmol/L (-2.0-2.0); ABG HCO3 22.2 mmol/L (22-26)
[2018-03-30] MEDS: DUONEB 0.5 MG/3 MG NEB SCH ×4 (00:47→13:00)
[2018-03-30] MEDS: SOLU-Medrol 40 MG VIAL IVP SCH ×2 (01:35→09:41)
[2018-03-30 05:16] LABS: BASOPHILS % (AUTO) 0.1 % (0.2-1.0); HEMATOCRIT 39.1 % (42.0-54.0); HEMOGLOBIN 13.3 g/dL (13.5-18.0); LYMPHOCYTES # (AUTO) 0.6 X10^3/uL (1.3-2.9); LYMPHOCYTES % (AUTO) 5.9 % (21.0-51.0); MEAN CORPUSCULAR HEMOGLOBIN 30.6 pg (27.0-34.0); MEAN CORPUSCULAR HGB CONC 34.1 g/dL (33.0-35.0); MEAN CORPUSCULAR VOLUME 89.8 fL (80.0-100.0); MEAN PLATELET VOLUME 8.2 fL (7.4-11.0); MONOCYTES # (AUTO) 0.2 x10^3/uL (0.3-0.8); MONOCYTES % (AUTO) 1.4 % (0.0-13.0); NEUTROPHILS # (AUTO) 10.1 x10^3/uL (2.2-4.8); NEUTROPHILS % (AUTO) 92.6 % (42.0-75.0); PLATELET COUNT 287 X10^3/uL (150.0-450.0); RED BLOOD COUNT 4.35 X10^6/uL (4.7-6.0); RED CELL DISTRIBUTION WIDTH 13.6 % (11.6-16.5); WHITE BLOOD COUNT 10.9 X10^3/uL (3.6-10.0)
[2018-03-30] MEDS: NS 1000 ML 1,000 ML IV SCH (05:19)
[2018-03-30 05:27] LABS: ALANINE AMINOTRANSFERASE 19 Units/L (12-78); ALKALINE PHOSPHATASE 46 Units/L (46-116); ASPARTATE AMINO TRANSFERASE 15 Units/L (15-37); BLOOD UREA NITROGEN 17 mg/dL (7-18); CALCIUM 8.4 mg/dL (8.5-10.1); CARBON DIOXIDE 23.7 mmol/L (21-32); CHLORIDE 103 mmol/L (98-107); COR CA(FOR HYPOALB) 9.2 mg/dL (8.5-10.1); COR NA(FOR HYPERGLY) 138 mmol/L (136-145); CREATININE 1.21 mg/dL (0.70-1.30); SODIUM 137 mmol/L (136-145); eGFR NON BLACK RACES > 60 (>60)
[2018-03-30 05:47] LABS: PLATELET MORPHOLOGY COMMENT NORMAL (NORMAL)
--- NOTE | 2018-03-30 06:44 | RAD ---
Chest single view. Indication: Shortness of breath Comparison March 29, 2018 Findings: The configuration of the heart and mediastinum remain stable. There is no focal infiltrate, effusion, or pneumothorax. The skeleton is negative. Impression: 1. Negative exam for active pathology. Reported By:
[2018-03-30] MEDS ORDERED: ZESTRIL TAB 20 MG ONE (08:32)
[2018-03-30] MEDS: ZIAC 5/6.25 MG PO SCH (09:38)
[2018-03-30] MEDS: PLAVIX PO SCH (09:38)
[2018-03-30] MEDS: LEVAQUIN PREMIX IV 500 MG 500 MG/100 ML BAG IV SCH (09:38)
[2018-03-30] MEDS: ASPIRIN EC 81 MG PO SCH (09:38)
[2018-03-30] MEDS: ZESTRIL TAB 20 MG PO SCH (09:39)
[2018-03-30] MEDS: NORVASC TAB 5 MG PO SCH (09:39)
[2018-03-30] MEDS: PROTONIX TAB 40 MG PO SCH (09:39)
[2018-03-30 13:27] VITALS: BP 99/66
--- NOTE | 2018-05-11 22:20 | DR.CARTERD ---
- Discharge Summary for: Discharge Summary for Date of:: 03/30/18 - Admission Date Date of Admission: 03/28/18 - Admission Diagnoses Admission Diagnosis: (1) COPD exacerbation (2) Hypoxia (3) Bronchitis - Discharge Date Discharge Date: 03/30/18 - Discharge Diagnoses Discharge Diagnosis: (1) COPD exacerbation (2) Hypoxia (3) Bronchitis - Hospital Course Hospital Course: DAY ONE, IS A 78 YEAR OLD PATIENT OF OURS WHO PRESENTED TO THE EMERGENCY ROOM WITH COMPLAINTS OF SHORTNESS OF BREATH AND DECREASED OXYGEN SATURATIONS. PATIENTS SON REPORTED THAT HIS OXYGEN SATURATIONS FELL TO AROUND 88% THE EVENING PRIOR, BUT CAME UP TO 93% ON 4 LITERS. FAMILY REPORTED THAT PATIENT DID NOT HAVE OXYGEN AT HOME, BUT THEY USED A NEIGHBORS OXYGEN. HE REPORTED THAT IT FELL AGAIN AFTER DECREASING THE OXYGEN. PATIENT DENIED CHEST PAIN. ASSOCIATED SYMPTOMS INCLUDED BILATERAL LOWER EXTREMITY SWELLING, COUGH, AND WHEEZING. ON ARRIVAL, VITALS WERE 97.9-106-24-94%NC-87/63. LABS WERE OBTAINED. ABNORMAL LAB VALUES INCLUDED THE FOLLOWING: RBC 4.00, HGB 12.3, HCT 36.3, D-DIMER 4420, CREATININE 1.33, GLUCOSE 112, CALCIUM 7.9, BNP 161, ALBUMIN 2.8. BLOOD CULTURES WERE PENDING. A CHEST CTA WAS OBTAINED AND REVEALED: Negative exam for pulmonary artery embolus aortic aneurysm or dissection. Changes of COPD. EKG REVEALED: SINUS RHYTHM WITH HR 93. HE WAS GIVEN SOLU- MEDROL 125MG IV X 1 DOSE, DUONEB X 1, AND A NORMAL SALINE BOLUS. HE WAS ADMITTED FOR FURTHER EVALUATION AND TREATMENT OF COPD EXACERBATION AND ACUTE BRONCHITIS. HE WAS STARTED ON LEVAQIN 500MG IV DAILY, DUONEBS Q4H, SUPPLEMENTAL OXGYEN, AD SOLU-MEDROL 80MG IV Q8H. DAY TWO, WAS ADMITTED FOR TREATMENT OF COPD EXACERBATION, ACUTE BRONCHITIS, AND HYPOXIA. HE WAS ALERT AND ORIENTED, LYING IN BED ON MORNING ROUNDS. HE CONTINUED WITH COMPLAINTS OF SHORTNESS OF BREATH AND COUGH. ON EXAMINATION, HEART WAS REGULAR IN RATE AND RHYTHM. BILATERAL LUNGS WERE NOTED WITH SCATTERED WHEEZING THROUGHOUT. ABDOMEN WAS ROUND, SOFT, AND NON-TENDER WITH NORMAL BOWEL SOUNDS NOTED IN ALL QUADRANTS. HIS VITALS WERE 97.7-103-18-94% -99/78. LABS WERE OBTAINED. ABNORMAL LAB VALUES INCLUDED THE FOLLOWING: WBC 10.8 , RBC 4.03, HGB 12.4, HCT 35.7, GLUCOSE 122, CALCIUM 8.1, TOTAL PROTEIN 6.3, ALBUMIN 2.7. BLOOD CULTURES WERE PENDING. STAFF REPORTED THAT PATIENTS OXYGEN SATURATIONS DROP INTO THE 80'S WHEN PATIENT WAS AMBULATING ON ROOM AIR. WE EVALUATED PATIENT FOR OXYGEN THERAPY AT HOME. WE CONTINUED WITH IV ANTIBIOTICS, RESPIRATORY TREATMENTS, AND CONTINUED TO MONITOR PATIENT. DAY THREE, PATIENT WAS FEELING BETTER. PATIENT QUALIFIED FOR HOME OXYGEN. HE DENIED SHORTNESS OF BREATH OR CHEST PAIN. NO DISTRESS WAS NOTED. VITAL SIGNS STABLE. LABS WNL. WE PLANNED FOR DISCHARGE. INSTRUCTIONS FOR MEDICATIONS AND FOLLOW UP WERE DISCUSSED WITH PATIENT AND FAMILY, BOTH VOICED UNDERSTANDING. PATIENT DISCHARGED HOME IN STABLE CONDITION WITH FAMILY. - Discharge Medications Discharge Medications: Home Medication List aspirin [Aspirin Low Dose] 81 mg PO QDAY 03/28/18 [History] bisoprolol-hydrochlorothiazide 1 tab PO QDAY 03/28/18 [History] ipratropium-albuterol 1 unit INHALATION TID #50 ml 03/30/18 [Rx] levofloxacin [Levaquin] 500 mg PO DAILY #10 tab 03/30/18 [Rx] Prescriptions: ipratropium-albuterol Manuel Cleary levofloxacin [Levaquin] Manuel Cleary Home medications amlodipine 1 tab PO DAILY 03/05/18 clopidogrel 1 tab PO DAILY 03/05/18 lisinopril 1 tab PO DAILY 03/05/18 olanzapine 1 tab PO DAILY 03/05/18 pantoprazole 1 tab PO DAILY 03/05/18 - Discharge Disposition Discharge Disposition: Patient is to follow up in our office in one week.
== END 2018-03-30 15:35 | disposition home or self-care (01) ==
LOC: MED/SURG 00:39 → ER 00:39 → MED/SURG 04:53
PROVIDERS: ADMIT Internal Medicine; ATTEND Internal Medicine
DX: R06.02 Shortness of breath; J20.8 Acute bronchitis due to other specified organisms; K21.9 Gastro-esophageal reflux disease without esophagitis; R07.89 Other chest pain; R26.81 Unsteadiness on feet; R09.02 Hypoxemia; J44.1 Chronic obstructive pulmonary disease with (acute) exacerbation; R94.4 Abnormal results of kidney function studies; R94.31 Abnormal electrocardiogram [ECG] [EKG]
CPT/HCPCS: 36415; 36600; 71010; 71045; 71275; 80048; 80053; 82550; 82553; 82803; 83735; 83880; 84484; 85025; 85378; 85610; 85730; 87040; 93005; 94640; 94760; 96365; 96367; 96374; 99284; A4216; A4222; G0378; J1956; J2920; J2930; J7030; J7050; J7620